=== PATIENT | female | born 1950 | race African-American/Black ===

== ENCOUNTER 2016-09-09 19:59 | Emergency (ER) | payer MEDICARE ==
[2016-09-09 21:28] LABS: Hematocrit 39 % (35-47); Hemoglobin 12.5 g/dl (12.0-16.0); Mean Corpuscular HGB Conc 32 g/dl (31-36); Mean Corpuscular Hemoglobin 30 pg (27-31); Mean Corpuscular Volume 94 fL (80-97); Mean Platelet Volume 9 um3 (7.4-10.4); Red Blood Count 4.12 10^6/ul (4.0-5.4); Red Cell Distribution Width 14 % (10.5-15); White Blood Count 7.4 10^3/ul (3.5-10.8)
[2016-09-09 21:44] LABS: Albumin 3.8 g/dL (3.2-5.2); BUN/Creatinine Ratio 10.1 (8-20); Calcium 9.1 mg/dL (8.6-10.3); EGFR African American 109.5 (>60); EGFR Non-African American 85.1 (>60); Globulin 3.1 g/dL (2-4); Magnesium 1.9 mg/dL (1.9-2.7); Potassium 3.7 mmol/L (3.5-5.0); Total Bilirubin 0.3 mg/dL (0.2-1.0); Total Protein 6.9 g/dL (6.4-8.9)
--- NOTE | 2016-09-09 21:48 | RAD ---
INDICATION: "Defibrillator buzzing" COMPARISON: Chest x-ray February 05, 2015 TECHNIQUE: PA and lateral views of the chest were obtained. FINDINGS: Left upper chest cardiac pacemaker with 2 leads overlying the heart is under change in position from previous chest x-ray. The heart and mediastinum are normal in size and contour. The lungs are grossly clear. There is no evidence of large pleural effusion. Visualized bones are normal for the patient's age. There is no radiographic evidence of free air beneath the diaphragm IMPRESSION: No radiographic evidence of acute cardiopulmonary disease.
--- NOTE | 2016-09-09 22:27 | ED ---
vane Flores Timothy, scribed for Loki Croft MD on 09/09/16 at 2112 . HPI Cardiac - HPI Summary HPI Summary: Selin Sharp is a 65 yo female presenting to [facility] with "buzzing" in her chest at 1800 today for a few seconds, and again a little later which lasted longer. Pt has a defibrillator in her left chest. She states that she did not feel any shock. She denies CP, SOB, nausea. She is not in any current pain. Her MHx includes angina, CAD, cardicac catheterization, meditronic heart monitor x 1 year, HLD, HTN, Afib partial hysterectomy, GERD, tobacco use. - History of Current Complaint Chief Complaint: EDGeneral Stated Complaint: DEFIBRILLATOR BUZZING Time Seen by Provider: 09/09/16 21:08 Hx Obtained From: Patient Onset/Duration: Started Hours Ago, Still Present Time of Onset: 18:00 Timing: Constant Initial Severity: Moderate Current Severity: Moderate Pain Intensity: 0 Pain Scale Used: 0-10 Numeric Character: Other: - buzzing of defibrillator without shock Associated Signs and Symptoms: Positive: Other: - defibrillator buzzing - Allergy/Home Medications Allergies/Adverse Reactions: Allergies Allergy/AdvReac Type Severity Reaction Status Date / Time Penicillins Allergy Intermediate Rash Verified 09/09/16 20:21 Lisinopril AdvReac Intermediate Coughing Verified 09/09/16 20:21 Latex AdvReac Unknown Unknown Verified 09/09/16 20:21 Reaction Details PMH/Surg Hx/FS Hx/Imm Hx Cardiovascular History: Reports: Hx Angina, Hx Coronary Artery Disease, Hx Hypercholesterolemia, Hx Hypertension - W/MEDS, Hx Pacemaker/ICD, Other Cardiovascular Problems/Disorders - HAS A MEDITRONIC HEART MONITOR X 1YR DONE @ [place] Denies: Hx Myocardial Infarction, Hx Valvular Heart Disease Respiratory History: Denies: Hx Asthma Musculoskeletal History: Denies: Hx Osteoporosis Sensory History: Denies: Hx Hearing Aid Psychiatric History: Denies: Hx Panic Disorder - Cancer History Hx Chemotherapy: No Hx Radiation Therapy: No - Surgical History Surgery Procedure, Year, and Place: *ECTOPIC ;partial hysterectomy. * FEEDING TUBE- DIFFICULTY EATING AN INFANT DUE TO DAIRY PRODUCTS- ALONG WITH A DYE THROUGH FEMORAL ARTERY TO SEE BLOOD FLOW AROUND ABD- NEEDLE ; BROKE OFF AND HAD TO HAVE SURGERY TO REMOVED BROKEN;. DEFIBRILATOR. NEED IN FEMERAL ARTERY;. *LOOP RECORDER -CARDIAC MONITORING- [employer]-REVEAL XT 9529-06/11 [facility] ( pt has a card and specifics on monitor in REPORT section in chart ) Infectious Disease History: Denies: Traveled Outside the [place] in Last 30 Days - Family History Known Family History: Positive: Cardiac Disease, Hypertension, Diabetes - Social History Alcohol Use: None Substance Use Type: Reports: None Hx Tobacco Use: Yes Smoking Status (MU): Former Smoker Review of Systems Constitutional: Negative Eyes: Negative ENT: Negative Cardiovascular: Other - defibrillator buzzing Respiratory: Negative Gastrointestinal: Negative Genitourinary: Negative Musculoskeletal: Negative Skin: Negative Neurological: Negative Psychological: Normal All Other Systems Reviewed And Are Negative: Yes Physical Exam Triage Information Reviewed: Yes Vital Signs On Initial Exam: Initial Vitals Temp Pulse Resp BP Pulse Ox 97 F 79 16 159/77 97 09/09/16 20:21 09/09/16 20:21 09/09/16 20:21 09/09/16 20:21 09/09/16 20:21 Vital Signs Reviewed: Yes Appearance: Positive: Well-Appearing, No Pain Distress Skin: Positive: Warm Head/Face: Positive: Normal Head/Face Inspection Eyes: Positive: EOMI, ALPESH ENT: Positive: Hearing grossly normal Neck: Positive: Supple, Nontender Respiratory/Lung Sounds: Positive: Clear to Auscultation, Breath Sounds Present Cardiovascular: Positive: RRR. Negative: Murmur Abdomen Description: Positive: Nontender, No Organomegaly, Soft Bowel Sounds: Positive: Present Musculoskeletal: Positive: Strength/ROM Intact Neurological: Positive: Alert, Oriented to Person Place, Time Diagnostics - Vital Signs Vital Signs Temp Pulse Resp BP Pulse Ox 09/09/16 20:21 97 F 79 16 159/77 97 - Laboratory Lab Results: Lab Results 09/09/16 09/09/16 09/09/16 Range/Units 21:22 21:22 21:22 WBC 7.4 (3.5-10.8) 10^3/ul RBC 4.12 (4.0-5.4) 10^6/ul Hgb 12.5 (12.0-16.0) g/dl Hct 39 (35-47) % MCV 94 (80-97) fL MCH 30 (27-31) pg MCHC 32 (31-36) g/dl RDW 14 (10.5-15) % Plt Count 180 (150-450) 10^3/ul MPV 9 (7.4-10.4) um3 Neut % (Auto) 44.6 (38-83) % Lymph % (Auto) 42.0 (25-47) % Gilmer % (Auto) 8.0 (1-9) % Eos % (Auto) 3.9 (0-6) % Baso % (Auto) 1.5 (0-2) % Absolute Neuts (auto) 3.3 (1.5-7.7) 10^3/ul Absolute Lymphs (auto) 3.1 (1.0-4.8) 10^3/ul Absolute Monos (auto) 0.6 (0-0.8) 10^3/ul Absolute Eos (auto) 0.3 (0-0.6) 10^3/ul Absolute Basos (auto) 0.1 (0-0.2) 10^3/ul Absolute Nucleated RBC 0.01 10^3/ul Nucleated RBC % 0.2 INR (Anticoag Therapy) 1.07 (0.89-1.11) Sodium 141 (133-145) mmol/L Potassium 3.7 (3.5-5.0) mmol/L Chloride 108 (101-111) mmol/L Carbon Dioxide 31 (22-32) mmol/L Anion Gap 2 (2-11) mmol/L BUN 7 (6-24) mg/dL Creatinine 0.69 (0.51-0.95) mg/dL Est GFR ( Amer) 109.5 (>60) Est GFR (Non-Af Amer) 85.1 (>60) BUN/Creatinine Ratio 10.1 (8-20) Glucose 124 H (70-100) mg/dL Lactic Acid (0.5-2.0) mmol/L Calcium 9.1 (8.6-10.3) mg/dL Magnesium 1.9 (1.9-2.7) mg/dL Total Bilirubin 0.30 (0.2-1.0) mg/dL AST 19 (13-39) U/L ALT 14 (7-52) U/L Alkaline Phosphatase 72 (34-104) U/L Troponin I 0.00 (<0.04) ng/mL Total Protein 6.9 (6.4-8.9) g/dL Albumin 3.8 (3.2-5.2) g/dL Globulin 3.1 (2-4) g/dL Albumin/Globulin Ratio 1.2 (1-3) 09/09/16 Range/Units 21:22 WBC (3.5-10.8) 10^3/ul RBC (4.0-5.4) 10^6/ul Hgb (12.0-16.0) g/dl Hct (35-47) % MCV (80-97) fL MCH (27-31) pg MCHC (31-36) g/dl RDW (10.5-15) % Plt Count (150-450) 10^3/ul MPV (7.4-10.4) um3 Neut % (Auto) (38-83) % Lymph % (Auto) (25-47) % Gilmer % (Auto) (1-9) % Eos % (Auto) (0-6) % Baso % (Auto) (0-2) % Absolute Neuts (auto) (1.5-7.7) 10^3/ul Absolute Lymphs (auto) (1.0-4.8) 10^3/ul Absolute Monos (auto) (0-0.8) 10^3/ul Absolute Eos (auto) (0-0.6) 10^3/ul Absolute Basos (auto) (0-0.2) 10^3/ul Absolute Nucleated RBC 10^3/ul Nucleated RBC % INR (Anticoag Therapy) (0.89-1.11) Sodium (133-145) mmol/L Potassium (3.5-5.0) mmol/L Chloride (101-111) mmol/L Carbon Dioxide (22-32) mmol/L Anion Gap (2-11) mmol/L BUN (6-24) mg/dL Creatinine (0.51-0.95) mg/dL Est GFR ( Amer) (>60) Est GFR (Non-Af Amer) (>60) BUN/Creatinine Ratio (8-20) Glucose (70-100) mg/dL Lactic Acid 1.0 (0.5-2.0) mmol/L Calcium (8.6-10.3) mg/dL Magnesium (1.9-2.7) mg/dL Total Bilirubin (0.2-1.0) mg/dL AST (13-39) U/L ALT (7-52) U/L Alkaline Phosphatase (34-104) U/L Troponin I (<0.04) ng/mL Total Protein (6.4-8.9) g/dL Albumin (3.2-5.2) g/dL Globulin (2-4) g/dL Albumin/Globulin Ratio (1-3) Result Diagrams: 09/09/16 21:22 09/09/16 21:22 Lab Statement: Any lab studies that have been ordered have been reviewed, and results considered in the medical decision making process. - Radiology CXR Xray Interpretation: No Acute Changes - IMPRESSION: No radiographic evidence of acute cardiopulmonary disease. Radiology Interpretation Completed By: Radiologist - EKG 2032 Cardiac Rate: NL - 71 BPM EKG Interpretation: NSR @ 71 BPM, occasional APC Re-Evaluation - Re-Evaluation First Eval Re-Evaluation Time: 00:34 Change: Improved Comment: Discussed lab and imaging studies with Pt. Answered questions of Pt and her family to their satisfaction. no furthewr episodes in ed, pt advised to f/u with cardio in am Disposition - Course Assessment/Plan: Selin Sharp is a 65 yo female presenting ot [facility] with buzzing in her defibrillator for 7 seconds at 1800, and again for slightly longer a little later. Pt medication list reviewed this visit. Her EKG suggests NSR with occasional APC. Her CXR suggests no evidence of acute cardiopulmonary disease. After clinical examination and review of her lab and imaging studies, she will be discharged home with palpitations with appropriate instructions. 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 Return to the emergency department with any new or recurring symptoms. The documentation as recorded by the vane montague Timothy accurately reflects the service I personally performed and the decisions made by me, Loki Croft MD.
[2016-09-10 00:57] VITALS: BP 152/84
== END 2016-09-10 00:55 | disposition home or self-care (01) ==
LOC: ED 19:59
DX: R00.2 Palpitations (principal); Z95.810 Presence of automatic (implantable) cardiac defibrillator; I10 Essential (primary) hypertension; I25.119 Atherosclerotic heart disease of native coronary artery with unspecified angina pectoris; E78.00 Pure hypercholesterolemia, unspecified; Z88.0 Allergy status to penicillin; Z88.8 Allergy status to other drugs, medicaments and biological substances; Z91.040 Latex allergy status; Z87.891 Personal history of nicotine dependence
CPT/HCPCS: 36415; 71020; 80053; 83605; 83735; 84484; 85025; 85610; 93005; 99283

== ENCOUNTER 2017-07-14 11:58 | Emergency (ER) | payer MEDICARE ==
[2017-07-14] MEDS ORDERED: predniSONE TAB* 20 MG PO ONE (12:34)
--- NOTE | 2017-07-14 12:45 | UC ---
Skin Complaint HPI - HPI Summary HPI Summary: Complains of progressive pruritic rash starting on bilateral legs moving to bilateral arms and hands 2 weeks. States pain starting yesterday. Denies fever, cough, sore throat, CP, SOB, N/V/D, abdomen pain, change in urinary BM. Denies new soaps, detergents, lotions, shampoos. Admits to change in prescription meds starting 2 weeks ago. Patient states pharmacy changed drug companies who supply her omeprazole, carvedilol, amlodipine. Has not taken any antihistamines. Medical conditions as HTN, GERD, defibrillator implant for A. fib. History of recent cold symptoms - History of Current Complaint Hx Obtained From: Patient Onset/Duration: Gradual Onset Skin Exposure Onset/Duration: Weeks Ago Onset Severity: Mild Current Severity: Moderate Location: Diffuse Character: Pruritus, Painful Associated Signs & Symptoms: Positive: Rash <Loki Valiente - Last Filed: 07/14/17 22:26> <Toma Winston - Last Filed: 07/15/17 10:14> - History of Current Complaint Time Seen by Provider: 07/14/17 12:16 Stated Complaint: RASH - Allergy/Home Medications Allergies/Adverse Reactions: Allergies Allergy/AdvReac Type Severity Reaction Status Date / Time latex Allergy Rash Verified 07/14/17 13:57 lisinopril Allergy Rash Verified 07/14/17 13:57 Penicillins Allergy Rash Verified 07/14/17 13:57 Review of Systems Constitutional: Negative Skin: Rash Eyes: Negative ENT: Negative Respiratory: Negative Cardiovascular: Negative Gastrointestinal: Negative Genitourinary: Negative Motor: Negative Neurovascular: Negative Musculoskeletal: Negative Neurological: Negative Psychological: Negative All Other Systems Reviewed And Are Negative: Yes <Loki Valiente - Last Filed: 07/14/17 22:26> PMH/Surg Hx/FS Hx/Imm Hx - Surgical History Surgical History: Yes Surgery Procedure, Year, and Place: *ECTOPIC ;partial hysterectomy. * FEEDING TUBE- DIFFICULTY EATING AN INFANT DUE TO DAIRY PRODUCTS- ALONG WITH A DYE THROUGH FEMORAL ARTERY TO SEE BLOOD FLOW AROUND ABD- NEEDLE ; BROKE OFF AND HAD TO HAVE SURGERY TO REMOVED BROKEN;. DEFIBRILATOR. NEED IN FEMERAL ARTERY;. *LOOP RECORDER -CARDIAC MONITORING- [employer]-REVEAL XT 9529-06/11 [facility] ( pt has a card and specifics on monitor in REPORT section in chart ) - Family History Known Family History: Positive: Cardiac Disease, Hypertension, Diabetes - Social History Alcohol Use: None Substance Use Type: None Smoking Status (MU): Former Smoker Household Exposure Type: Cigarettes <RoccoLoki - Last Filed: 07/14/17 22:26> Physical Exam Triage Information Reviewed: Yes Appearance: Well-Appearing Vital Signs Reviewed: Yes Eyes: Positive: Conjunctiva Clear ENT Exam: Normal Neck exam: Normal Respiratory Exam: Normal Cardiovascular Exam: Normal Abdominal Exam: Normal Musculoskeletal Exam: Normal Neurological Exam: Normal Psychological Exam: Normal <RoccoLoki - Last Filed: 07/14/17 22:26> Vital Signs: Initial Vital Signs Temp 97.4 F 07/14/17 13:53 Pulse 78 07/14/17 13:53 Resp 18 07/14/17 13:53 BP 170/78 07/14/17 13:53 Pulse Ox 99 07/14/17 13:53 <Toma Winston - Last Filed: 07/15/17 10:14> Course/Dx - Course Course Of Treatment: pruritic macular papular rash. Trial of prednisone po. f/ up with pcp for possible reaction to usual meds thru new drug supplier at pharmacy - Diagnoses Provider Diagnoses: Rash <Loki Valiente - Last Filed: 07/14/17 22:26> Discharge - Sign-Out/Discharge Documenting (check all that apply): Discharge/Admit/Transfer - Billing Disposition and Condition Condition: STABLE Disposition: HOME <Loki Valiente - Last Filed: 07/14/17 22:26> - Billing Disposition and Condition Condition: STABLE Disposition: HOME <Toma Winston - Last Filed: 07/15/17 10:14> - Discharge Plan Condition: Stable Disposition: HOME Patient Education Materials: Urticaria (ED), Acute Rash (ED) Referrals: Yelitza Mane MD [Primary Care Provider] - Additional Instructions: Follow-up with primary care regarding change in prescription meds. Return for any new or worsening symptoms Attestation Statement User Type: Provider - I was available for consult. This patient was seen by the KRYSTINA. The patient was not presented to, seen by, or examined by me. -Aracely <Toma Winston - Last Filed: 07/15/17 10:14>
[2017-07-14 13:55] VITALS: BP 170/78
== END 2017-07-14 14:01 | disposition home or self-care (01) ==
LOC: UCEAST 11:58
DX: R21 Rash and other nonspecific skin eruption (principal); Z88.0 Allergy status to penicillin; Z88.8 Allergy status to other drugs, medicaments and biological substances; Z91.040 Latex allergy status; Z87.891 Personal history of nicotine dependence
CPT/HCPCS: 99212; G0463; J7512

== ENCOUNTER 2018-04-07 14:32 | Emergency (ER) | payer MEDICARE ==
--- OUTSIDE RECORDS SUMMARY | 2018-04-07 15:13 | XMS REPORT | Continuity of Care Document ---
:1950 External Reference #:[id number] Author Name Kristin Castañeda Care Team Providers Name Role Phone Yelitza Mane MD Primary Care Physician Unavailable Payers Type Date Identification Numbers Payment Provider Subscriber Policy Number: [id number] [employer] Medicare Selin D Sharp PayID: [id number] [address] [place] [address] Effective: 2010 Policy Number: [id number] Medicare Selin D Sharp Expires: 2018 PayID: [id number] [address] [place] [address] Expires: 2014 Policy Number: [id number] Medicaid Selin D Sharp Group Name: 1 1 [address] PayID: [id number] [place] [address] Expires: 2014 Policy Number: [id number] Medicaid Selin D Sharp Group Name: 1 1 [address] PayID: [id number] [place] [address] Expires: 2012 Policy Number: [id number] Medicaid Selin D Sharp PayID: [id number] [address] [place] [address] Expires: 2012 Policy Number: [place] Medicaid Selin D Sharp [id number] PayID: [id number] [address] [address] [place] [address] Expires: 2014 Policy Number: [id number] Medicaid Selin D Sharp Group Name: 1 1 [address] PayID: [id number] [place] [address] Expires: 2016 Policy Number: [id number] Medicaid Selin D Sharp Group Name: 1 1 [address] PayID: [id number] [place] [address] Expires: 2000 Policy Number: [id number] Medicaid Selin D Sharp Group Name: 1 1 [address] PayID: [id number] [place] [address] Expires: 2016 Policy Number: [id number] Medicaid Selin D Sharp Group Name: 1 1 [address] PayID: [id number] [place] [address] Advance Directives Description No Information Available Problems Date Description Provider Status Onset: 04/09/2011 Coronary atherosclerosis Junior Hernandez Active [place] Onset: 04/09/2011 Restrictive cardiomyopathy Junior Hernandez, Active secondary to granulomas M.D. Onset: 04/09/2011 Essential hypertension Junior Hernandez Active [place] Onset: 04/09/2011 Electrocardiogram abnormal Jesus Nolan M.D. Onset: 06/27/2011 Conduction disorder of the heart Junior Hernandez Active [place] Onset: 06/27/2011 Syncope and collapse Jesus Nolan M.D. Onset: 06/27/2011 Coronary arteriosclerosis Junior Hernandez Active [place] Onset: 07/14/2012 Mixed hyperlipidemia Junior Hernandez Active [place] Onset: 03/14/2013 Primary cardiomyopathy Junior Hernandez Active [place] Onset: 03/14/2013 Automatic implantable cardiac Junior Hernandez Active defibrillator in situ M.D. Onset: 03/14/2013 Benign essential hypertension Junior Hernandez Active [place] Onset: 01/08/2015 Cardiomyopathy, unspecified Junior Hernandez Active [place] Onset: Internal hemorrhoids Active Family History Date Family Member(s) Problem(s) Comments : (age 62 Father due to Cancer, Lung smoker Years) : (age 62 Mother due to [place] smoker, HTN Years) Paternal Grandfather due to Unknown () Causes Paternal Grandmother due to poisoning () : (age 72 Maternal Grandfather due to Unknown Years) Causes : (age 74 Maternal Grandmother due to Diabetes Years) Maternal Grandmother due to Hypertension () Social History Type Date Description Comments Sex Unknown Marital Status Lives With Children 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 Tobacco Use Start: Unknown End: Former Cigarette Smoker started at age 22 , Unknown quit 2014 41 pk yr Smoking Status Reviewed: 03/25/18 Former Cigarette Smoker started at age 22 , quit 2014 41 pk yr ETOH Use Drinks Alcoholic Beverages Rarely Recreational Drug Use Denies Drug Use Tobacco Use Start: Unknown End: Patient is a former Unknown smoker Exercise Type/Frequency Exercises regularly 3-4 times a week Allergies, Adverse Reactions, Alerts Date Description Reaction Status Severity Comments 11/06/2009 Penicillins Active unknown/unsure if real reaction 06/27/2011 Latex Active 07/26/2013 Lisinopril Active dry cough Medications Medication Date Status Form Strength Qnty SIG Indications Ordering Provider Losartan 09/25/ Active Tablets 100mg 30tabs 1 by I10 Marcelletadong Potassium 2018 mouth S. every day lBanca Hernandez Simvastatin 12/02/ Active Tablets 5mg 30tabs 1 by Junior 2017 mouth S. every day Mary in the , M.DAaliyah evening. Amlodipine 04/03/ Active Tablets 5mg 60tabs 1 by Yelitza Besylate 2016 mouth Mane, every day M.D. Aspirin / Active Tablets 81mg 1 po qd Unknown 0000 Carvedilol / Active Tablets 3.125mg 60tabs 1 by Junior 0000 mouth [facility]. [facility] M.Da[facility]yah Clindamycin HCL 10/14/ Hx Capsules 150mg 9caps one Danny 2017 - capsule D. Brand, 10/19/ by mouth M.DAaliyah 2017 three times a day for 3 days Diovan 01/18/ Hx Tablets 160mg 180tab 1 tab I10 Qutaybeh 2015 - s twice a S. day Mary Granger M.D. Losartan 01/08/ Hx Tablets 100mg 30tabs one po qd Qutaybeh Potassium 2014 - S. 01/18/ Mary 2014 [place] Losartan 12/21/ Hx Tablets 50mg 90tabs 1 by Yelitza Potassium 2014 - mouth Mane, 01/08/ every day M.DAaliyah 2014 Losartan 10/30/ Hx Tablets 25mg 90tabs 2 by 401.9 Yelitza Potassium 2014 - mouth Mane, 12/21/ every day M.DAaliyah 2014 Bupropion HCL ER 07/26/ Hx Tablets ER 150mg 60tabs 1 tablet 311 Yelitza (XL) 2013 - 24HR once a Mane, M.DAaliyah 2014 Losartan 07/06/ Hx Tablets 25mg 90tabs 1 by 401.1 Marcelletaybeh Potassium 2013 - mouth S. 10/30/ every day Mary 2014 [place] Omeprazole 04/07/ Hx Capsules 20mg 30caps take 1 K21.9 Yelitza 2013 - DR capsule Alhaji, 03/24/ by mouth M.DAaliyah 2018 once daily Gabapentin 12/06/ Hx Capsules 100mg 90caps take 1 Yelitza 2012 - capsule Alhaji, 10/30/ by mouth M.DAaliyah 2014 three times a day Neurontin 08/12/ Hx Capsules 100mg 90caps po tid 722.91 Yelitza 2012 - Alhaji, 09/28/ [place] 2012 Lisinopril 07/28/ Hx Tablets 10mg 90tabs 1 po qd Qutaybeh 2012 - S. 07/06/ Mary 2013 [place] Bupropion HCL XL 07/22/ Hx Tablets ER 150mg 60tabs 1 tablet 311 Yelitza 2012 - 24HR twice a Mane, day M.Carly 2013 Lorazepam 07/14/ Hx Tablets 1mg 120tab 1 q 6 Other 2013 - s hours prn Ordering 07/22/ Provider 2013 Lisinopril 09/09/ Hx Tablets 5mg 90tabs 1 po qd Qutaybeh 2010 - S. 04/09/ Mary Jefferson M.D. [place] 08/14/ Hx Tablets 5-325mg 30tabs 1 po q6h Dirk 2010 - prn pain Sayra, 04/09/ [place] 2012 Metoprolol 11/14/ Hx Tablets 25mg 30tabs 1 tablet Qutayb Tartrate 2009 - po qd S. [facility] 2010 [place] Lisinopril 11/06/ Hx Tablets 2.5mg 30tabs 1 po qd Qutaybeh 2009 - S. [facility] 2010 [place] Toprol XL 11/06/ Hx Tablets ER 25mg 30tabs 1 po qd Qutaybeh 2009 - 24HR S. [facility] 2009 [place] Lasix 11/06/ Hx Tablets 20mg 30tabs 1 po qd Qutaybeh 2009 - S. [facility] [place] Jefferson Cyclobenzaprine / Hx Tablets 5mg 30tabs 1 po tid Unknown HCL 0000 - prn 2010 Ibuprofen / Hx Tablets 600mg 90tabs 1 po tid Unknown 0000 - prn 2011 Centrum Silver / Hx Tablets 50tabs 1 po qd Unknown 0000 - 2011 Potassium /00/ Hx Capsules 10Meq 100cap 1 po qod Unknown Chloride ER 0000 - ER s 2010 Omeprazole / Hx Tablets DR 20mg 90tabs 1 po qd Unknown 0000 - 2011 Klor-Con 10 / Hx Tablets ER 10Meq 30tabs 1 po qod Unknown 0000 - 2011 Bupropion HCL / Hx Tablets 75mg 1 po qd Unknown 0000 - 2012 Lisinopril / Hx Tablets 5mg 90tabs 1 po qd Qutaybeh 0000 - S. [facility] [place] Reese Omeprazole 0000/ Hx Capsules 20mg 30caps 1 po qd Unknown 0000 - DR 2012 Zocor 00/ Hx Tablets 20mg 90tabs 1 by Qutaybeh 0000 - mouth S. 08/26/ [facility] 2017 night at [facility] bedtime Immunizations CPT Code Status Date Vaccine Lot # [id number] Given 03/26/2015 Pneumococcal Conjugate Vaccine 13 Valent For [id number] Intramuscular Use [id number] Given 08/12/2012 Tdap - Tetanus/Diptheria/Acellular Pertussis [id number] Refused 12/15/2016 Influenza Virus Vaccine, Quadrivalent, Split, Preservative Free [id number] Refused 03/26/2015 Influenza Virus Vaccine, Quadrivalent, Split, Preservative Free Vital Signs Date Vital Result Comment 03/25/2018 11:24am Height 61.3 inches 5'1.30" Weight 175.00 lb w/o shoes Heart Rate 81 /min BP Systolic Sitting 180 mmHg Lue reg cuff BP Diastolic Sitting 90 mmHg Lue reg cuff BP Systolic Standing 150 mmHg lue Reg cuff BP Diastolic Standing 85 mmHg lue Reg cuff Respiratory Rate 17 /min BMI (Body Mass Index) 32.7 kg/m2 Ejection Fraction 40-45% 12/02/17 echo 08/27/2017 3:07pm Height 61.3 inches 5'1.30" Weight 184.00 lb Heart Rate 64 /min BP Systolic Sitting 152 mmHg BP Diastolic Sitting 78 mmHg Respiratory Rate 16 /min BMI (Body Mass Index) 34.4 kg/m2 Ejection Fraction 40-45% 05/16/2016 echo 12/23/2016 12:57pm Height 61.3 inches 5'1.30" Weight 180.75 lb with shoes Heart Rate 92 /min BP Systolic Sitting 142 mmHg LA reg cuff BP Diastolic Sitting 80 mmHg LA reg cuff BMI (Body Mass Index) 33.8 kg/m2 Ejection Fraction 40%-45% echo 05/16/16 12/15/2016 10:29am Height 61.3 inches 5'1.30" Weight 178.00 lb Heart Rate 77 /min BP Systolic Sitting 138 mmHg BP Diastolic Sitting 82 mmHg Body Temperature 96.7 F O2 % BldC Oximetry 97 % BMI (Body Mass Index) 33.3 kg/m2 10/21/2016 1:35pm Height 62 inches 5'2" Weight 181.00 lb w/ shoes Heart Rate 80 /min irreg BP Systolic Sitting 150 mmHg Lue, reg BP Diastolic Sitting 90 mmHg Lue, reg BP Systolic Standing 140 mmHg Lue BP Diastolic Standing 86 mmHg Lue Respiratory Rate 16 /min BMI (Body Mass Index) 33.1 kg/m2 Ejection Fraction 40-45% as of 04/2016 echo 09/19/2016 10:36am Height 62 inches 5'2" Weight 182.00 lb with shoes Heart Rate 64 /min BP Systolic Sitting 140 mmHg Rue reg cuff BP Diastolic Sitting 88 mmHg Rue reg cuff BP Systolic Standing 136 mmHg Rue reg cuff BP Diastolic Standing 86 mmHg Rue reg cuff Respiratory Rate 14 /min BMI (Body Mass Index) 33.3 kg/m2 Ejection Fraction 40-45% 05/16/2016-echo 08/14/2016 12:51pm Weight 181.25 lb Heart Rate 86 /min BP Systolic 138 mmHg BP Diastolic 80 mmHg Body Temperature 96.9 F O2 % BldC Oximetry 98 % 04/29/2016 12:51pm Height 62 inches 5'2" Weight 179.00 lb with shoes Heart Rate 88 /min BP Systolic Sitting 166 mmHg LA lrg cuff BP Diastolic Sitting 98 mmHg LA lrg cuff BMI (Body Mass Index) 32.7 kg/m2 Ejection Fraction 40% - 45% echo 01/31/15 05/07/2015 9:30am Height 62 inches 5'2" Weight 160.00 lb Heart Rate 64 /min BP Systolic Sitting 132 mmHg LA, regular cuff BP Diastolic Sitting 76 mmHg LA, regular cuff BMI (Body Mass Index) 29.3 kg/m2 Ejection Fraction 40-45% echo 01/31/15 04/03/2015 11:41am Heart Rate 60 /min BP Systolic 150 mmHg BP Diastolic 80 mmHg 03/26/2015 1:15pm Height 61 inches 5'1" Weight 160.00 lb Heart Rate 56 /min BP Systolic Sitting 164 mmHg BP Diastolic Sitting 77 mmHg Body Temperature 96.3 F BMI (Body Mass Index) 30.2 kg/m2 02/13/2015 10:49am Height 62 inches 5'2" Weight 163.00 lb with shoes Heart Rate 70 /min BP Systolic 166 mmHg LA reg cuff BP Diastolic 98 mmHg LA reg cuff Respiratory Rate 17 /min BMI (Body Mass Index) 29.8 kg/m2 Ejection Fraction 40-45% date 01/31/15 ECHO 01/18/2015 1:39pm Height 62 inches 5'2" Weight 166.00 lb with shoes Heart Rate 66 /min BP Systolic Sitting 168 mmHg LA reg cuff BP Diastolic Sitting 100 mmHg LA reg cuff Respiratory Rate 16 /min BMI (Body Mass Index) 30.4 kg/m2 Ejection Fraction 45-50% date 05/19/14 ECHO 01/08/2015 3:30pm Height 62 inches 5'2" Weight 164.00 lb with shoes Heart Rate 62 /min BP Systolic 184 mmHg LA reg cuff BP Diastolic 98 mmHg LA reg cuff BP Systolic Sitting 198 mmHg LA reg cuff BP Diastolic Sitting 102 mmHg LA reg cuff BMI (Body Mass Index) 30.0 kg/m2 Ejection Fraction 50-55% date 05/19/14 ECHO 10/30/2014 12:07pm Height 62 inches 5'2" Weight 161.00 lb Heart Rate 76 /min BP Systolic Sitting 180 mmHg BP Diastolic Sitting 94 mmHg Body Temperature 98.0 F O2 % BldC Oximetry 98 % BMI (Body Mass Index) 29.4 kg/m2 05/23/2014 3:02pm Height 62 inches 5'2" Weight 172.00 lb Heart Rate 66 /min BP Systolic Sitting 118 mmHg LA, reg BP Diastolic Sitting 82 mmHg LA, reg BMI (Body Mass Index) 31.5 kg/m2 04/25/2014 2:19pm Height 62 inches 5'2" Weight 174.00 lb Heart Rate 72 /min BP Systolic 160 mmHg LA reg BP Diastolic 90 mmHg LA reg BMI (Body Mass Index) 31.8 kg/m2 07/26/2013 3:06pm Weight 179.00 lb Heart Rate 70 /min BP Systolic Sitting 122 mmHg BP Diastolic Sitting 72 mmHg 07/06/2013 2:03pm Weight 179.00 lb Heart Rate 70 /min BP Systolic Sitting 140 mmHg BP Diastolic Sitting 82 mmHg 04/07/2013 2:44pm Height 62.5 inches 5'2.50" Weight 173.25 lb Heart Rate 79 /min BP Systolic Sitting 138 mmHg BP Diastolic Sitting 84 mmHg BMI (Body Mass Index) 31.2 kg/m2 03/14/2013 1:19pm Height 62.5 inches 5'2.50" Weight 173.00 lb Heart Rate 68 /min BP Systolic 162 mmHg BP Diastolic 94 mmHg BMI (Body Mass Index) 31.1 kg/m2 10/27/2012 2:20pm Height 62 inches 5'2" Weight 165.00 lb BP Systolic 134 mmHg BP Diastolic 76 mmHg Pain Level 6 low back pain BMI (Body Mass Index) 30.2 kg/m2 09/28/2012 10:01am Weight 163.00 lb Heart Rate 74 /min BP Systolic Sitting 131 mmHg BP Diastolic Sitting 75 mmHg O2 % BldC Oximetry 96 % 09/14/2012 10:45am Height 61.5 inches 5'1.50" Heart Rate 62 /min BP Systolic 132 mmHg BP Diastolic 80 mmHg 08/12/2012 11:35am Height 61.5 inches 5'1.50" Weight 160.00 lb Heart Rate 80 /min BP Systolic Sitting 156 mmHg BP Diastolic Sitting 86 mmHg BMI (Body Mass Index) 29.7 kg/m2 07/28/2012 4:13pm Height 61.5 inches 5'1.50" Weight 163.00 lb Heart Rate 68 /min BP Systolic Sitting 180 mmHg BP Diastolic Sitting 80 mmHg Respiratory Rate 20 /min BMI (Body Mass Index) 30.3 kg/m2 07/22/2012 9:50am Height 61.5 inches 5'1.50" Weight 159.25 lb Heart Rate 66 /min BP Systolic Sitting 104 mmHg BP Diastolic Sitting 72 mmHg O2 % BldC Oximetry 97 % BMI (Body Mass Index) 29.6 kg/m2 07/16/2012 2:49pm Height 63 inches 5'3" Weight 161.00 lb Heart Rate 84 /min BP Systolic Sitting 108 mmHg BP Diastolic Sitting 76 mmHg Respiratory Rate 16 /min BMI (Body Mass Index) 28.5 kg/m2 07/14/2012 2:49pm Height 63 inches 5'3" Weight 161.00 lb Heart Rate 120 /min BP Systolic 138 mmHg BP Diastolic 90 mmHg BMI (Body Mass Index) 28.5 kg/m2 03/04/2012 3:14pm Height 63 inches 5'3" Heart Rate 96 /min BP Systolic 138 mmHg BP Diastolic 78 mmHg 06/27/2011 9:27am Height 63 inches 5'3" Weight 147.00 lb Heart Rate 50 /min BP Systolic 122 mmHg BP Diastolic 66 mmHg BMI (Body Mass Index) 26.0 kg/m2 04/09/2011 9:16am Height 63 inches 5'3" Weight 148.00 lb Heart Rate 78 /min BP Systolic 130 mmHg BP Diastolic 72 mmHg BMI (Body Mass Index) 26.2 kg/m2 09/09/2010 9:45am Height 63 inches 5'3" Weight 159.00 lb Heart Rate 62 /min BP Systolic Sitting 132 mmHg L BP Diastolic Sitting 70 mmHg L BMI (Body Mass Index) 28.2 kg/m2 06/12/2010 1:55pm Height 63 inches 5'3" Weight 162.00 lb Heart Rate 60 /min BP Systolic 131 mmHg BP Diastolic 74 mmHg BMI (Body Mass Index) 28.7 kg/m2 04/12/2010 9:44am Height 63 inches 5'3" Weight 157.00 lb Heart Rate 56 /min BP Systolic Sitting 112 mmHg BP Diastolic Sitting 60 mmHg BMI (Body Mass Index) 27.8 kg/m2 12/10/2009 2:17pm Height 63 inches 5'3" Weight 159.00 lb Heart Rate 68 /min BP Systolic 160 mmHg BP Diastolic 90 mmHg Respiratory Rate 16 /min BMI (Body Mass Index) 28.2 kg/m2 11/06/2009 2:07pm Height 63 inches 5'3" Weight 158.00 lb Heart Rate 53 /min BP Systolic Sitting 126 mmHg left arm, right arm 124/84 BP Diastolic Sitting 82 mmHg left arm, right arm 124/84 BP Systolic Standing 144 mmHg right arm BP Diastolic Standing 70 mmHg right arm BMI (Body Mass Index) 28.0 kg/m2 Results Test Date Facility Test Result H/L Range Note Laboratory test 02/17/2017 [facility] Surgical SEE RESULT 1 , [address] [place] [address] [phone] Comp Metabolic 01/12/2017 [facility] Sodium 141 mmol/L N 133- [address] [place] [address] [phone] Potassium 3.9 mmol/L N 3.5-5.0 Chloride 108 mmol/L N 101-111 Co2 Carbon Dioxide 30 mmol/L N 22-32 Anion Gap 3 mmol/L N 2-11 Glucose 84 mg/dL N 70-100 Blood Urea Nitrogen 10 mg/dL N 6-24 Creatinine 0.74 mg/dL N 0.51-0.95 BUN/Creatinine Ratio 13.5 N 8-20 Calcium 9.1 mg/dL N 8.6-10.3 Total Protein 6.9 g/dL N 6.4-8.9 Albumin 3.8 g/dL N 3.2-5.2 Globulin 3.1 g/dL N 2-4 Albumin/Globulin Ratio 1.2 N 1-3 Total Bilirubin 0.50 mg/dL N 0.2-1.0 Alkaline Phosphatase 86 U/L N 34-104 Alt 16 U/L N 7-52 Ast 19 U/L N 13-39 Egfr Non- 78.3 >60 Egfr 100.7 >60 3 CBC Auto Diff 01/12/2017 [facility] White Blood 6.7 10^3/uL N 3.5-10.[address] Count [place], [place] [id number] [phone] Red Blood Count 4.31 10^6/uL N 4.0-5.4 Hemoglobin 12.8 g/dL N 12.0-16.0 Hematocrit 39 % N 35-47 Mean Corpuscular Volume 90 fL N 80-97 Mean Corpuscular Hemoglobin 30 pg N 27-31 Mean Corpuscular HGB Conc 33 g/dL N 31-36 Red Cell Distribution Width 14 % N 10.5-15 Platelet Count 204 10^3/uL N 150-450 Mean Platelet Volume 9 um3 N 7.4-10.4 Abs Neutrophils 2.7 10^3/uL N 1.5-7.7 Abs Lymphocytes 3.1 10^3/uL N 1.0-4.8 Abs Monocytes 0.6 10^3/uL N 0-0.8 Abs Eosinophils 0.2 10^3/uL N 0-0.6 Abs Basophils 0.1 10^3/uL N 0-0.2 Abs Nucleated RBC 0 10^3/uL Granulocyte % 40.9 % N 38-83 Lymphocyte % 46.2 % N 25-47 Monocyte % 8.7 % N 1-9 Eosinophil % 3.4 % N 0-6 Basophil % 0.8 % N 0-2 Nucleated Red Blood Cells % 0 Laboratory test 01/12/2017 [facility] TSH (Thyroid 0.93 mcIU/mL N 0.34-5.[address] Stim Horm) [place] [address] [phone] Hepatitis C Antibody Nonreactive Nonreactive Laboratory test 10/14/2016 [facility] Surgical SEE RESULT [address] [place] [address] [phone] Pre Cath Panel 10/09/2016 [facility] Partial 30.0 seconds N 26.0- 5, [address] Thrombo Time 36.3 [place] [address] PTT [phone] CBC Auto Diff 10/09/2016 [facility] White Blood 6.0 10^3/uL N 3.5-[address] Count 0.8 [place] [address] [phone] Red Blood Count 4.14 10^6/uL N 4.0-5.4 Hemoglobin 12.6 g/dL N 12.0-16.0 Hematocrit 38 % N 35-47 Mean Corpuscular Volume 92 fL N 80-97 Mean Corpuscular Hemoglobin 30 pg N 27-31 Mean Corpuscular HGB Conc 33 g/dL N 31-36 Red Cell Distribution Width 14 % N 10.5-15 Platelet Count 188 10^3/uL N 150-450 Mean Platelet Volume 9 um3 N 7.4-10.4 Abs Neutrophils 2.5 10^3/uL N 1.5-7.7 Abs Lymphocytes 2.7 10^3/uL N 1.0-4.8 Abs Monocytes 0.4 10^3/uL N 0-0.8 Abs Eosinophils 0.3 10^3/uL N 0-0.6 Abs Basophils 0.1 10^3/uL N 0-0.2 Abs Nucleated RBC 0 10^3/uL N Granulocyte % 42.1 % N 38-83 Lymphocyte % 45.1 % N 25-47 Monocyte % 7.3 % N 1-9 Eosinophil % 4.4 % N 0-6 Basophil % 1.1 % N 0-2 Nucleated Red Blood Cells % 0 N Inr/Protime 10/09/2016 [facility] Inr 0.94 N 0.89-1.[address] [place] [address] [phone] Basic Metabolic 10/09/2016 [facility] Sodium 143 mmol/L N 133- [address] [place] [address] [phone] Potassium 4.0 mmol/L N 3.5-5.0 Chloride 109 mmol/L N 101-111 Co2 Carbon Dioxide 29 mmol/L N 22-32 Anion Gap 5 mmol/L N 2-11 Glucose 94 mg/dL N 70-100 Blood Urea Nitrogen 8 mg/dL N 6-24 Creatinine 0.66 mg/dL N 0.51-0.95 BUN/Creatinine Ratio 12.1 N 8-20 Calcium 9.0 mg/dL N 8.6-10.3 Egfr Non- 89.3 N >60 Egfr 114.9 N >60 7 Laboratory test 09/10/2016 [facility] Troponin-I 0.01 ng/mL N <0.[address] (TnI) [place] [address] [phone] Inr/Protime 09/09/2016 [facility] Inr 1.07 N 0.89-1.[address] [place] [address] [phone] Comp Metabolic 09/09/2016 [facility] Sodium 141 mmol/L N 133- [address] [place] [address] [phone] Potassium 3.7 mmol/L N 3.5-5.0 Chloride 108 mmol/L N 101-111 Co2 Carbon Dioxide 31 mmol/L N 22-32 Anion Gap 2 mmol/L N 2-11 Glucose 124 mg/dL High 70-100 Blood Urea Nitrogen 7 mg/dL N 6-24 Creatinine 0.69 mg/dL N 0.51-0.95 BUN/Creatinine Ratio 10.1 N 8-20 Calcium 9.1 mg/dL N 8.6-10.3 Total Protein 6.9 g/dL N 6.4-8.9 Albumin 3.8 g/dL N 3.2-5.2 Globulin 3.1 g/dL N 2-4 Albumin/Globulin Ratio 1.2 N 1-3 Total Bilirubin 0.30 mg/dL N 0.2-1.0 Alkaline Phosphatase 72 U/L N 34-104 Alt 14 U/L N 7-52 Ast 19 U/L N 13-39 Egfr Non- 85.1 N >60 Egfr 109.5 N >60 8 Laboratory test 09/09/2016 [facility] Magnesium 1.9 mg/dL N 1.9-2.[address] [place] [address] [phone] Troponin-I (TnI) 0.00 ng/mL N <0.04 CBC Auto Diff 09/09/2016 [facility] White Blood 7.4 10^3/uL N 3.5-10.[address] [place] [address] [phone] Red Blood Count 4.12 10^6/uL N 4.0-5.4 Hemoglobin 12.5 g/dL N 12.0-16.0 Hematocrit 39 % N 35-47 Mean Corpuscular Volume 94 fL N 80-97 Mean Corpuscular Hemoglobin 30 pg N 27-31 Mean Corpuscular HGB Conc 32 g/dL N 31-36 Red Cell Distribution Width 14 % N 10.5-15 Platelet Count 180 10^3/uL N 150-450 Mean Platelet Volume 9 um3 N 7.4-10.4 Abs Neutrophils 3.3 10^3/uL N 1.5-7.7 Abs Lymphocytes 3.1 10^3/uL N 1.0-4.8 Abs Monocytes 0.6 10^3/uL N 0-0.8 Abs Eosinophils 0.3 10^3/uL N 0-0.6 Abs Basophils 0.1 10^3/uL N 0-0.2 Abs Nucleated RBC 0.01 10^3/uL N Granulocyte % 44.6 % N 38-83 Lymphocyte % 42.0 % N 25-47 Monocyte % 8.0 % N 1-9 Eosinophil % 3.9 % N 0-6 Basophil % 1.5 % N 0-2 Nucleated Red Blood Cells % 0.2 N Laboratory test 09/09/2016 [facility] Lactic Acid 1.0 mmol/L N 0.5-2.0 9 finding [address] [place] [address] [phone] Lipid Profile 08/18/2016 [facility] Triglycerides 80 mg/dL N 10 (Trig/Chol/HDL) [address] [place] [address] [phone] Cholesterol 125 mg/dL N 11 HDL Cholesterol 44.4 mg/dL N 12 LDL Cholesterol 65 mg/dL N 13 Comp Metabolic Panel 08/18/2016 [facility] Sodium 139 mmol/L N 133-145 [address] [place] [address] [phone] Potassium 3.9 mmol/L N 3.5-5.0 Chloride 110 mmol/L N 101-111 Co2 Carbon Dioxide 27 mmol/L N 22-32 Anion Gap 2 mmol/L N 2-11 Glucose 96 mg/dL N 70-100 Blood Urea Nitrogen 13 mg/dL N 6-24 Creatinine 0.74 mg/dL N 0.51-0.95 BUN/Creatinine Ratio 17.6 N 8-20 Calcium 9.3 mg/dL N 8.6-10.3 Total Protein 7.2 g/dL N 6.4-8.9 Albumin 4.2 g/dL N 3.2-5.2 Globulin 3.0 g/dL N 2-4 Albumin/Globulin Ratio 1.4 N 1-3 Total Bilirubin 0.40 mg/dL N 0.2-1.0 Alkaline Phosphatase 85 U/L N 34-104 Alt 20 U/L N 7-52 Ast 22 U/L N 13-39 Egfr Non- 78.5 N >60 Egfr 101.0 N >60 14 Basic Metabolic Panel 01/29/2015 [facility] Sodium 142 mmol/L N 133-[address] [place] [address] [phone] Potassium 3.6 mmol/L N 3.5-5.0 Chloride 108 mmol/L N 101-111 Co2 Carbon Dioxide 28 mmol/L N 22-32 Anion Gap 6 mmol/L N 2-11 Glucose 90 mg/dL N 70-100 Blood Urea Nitrogen 9 mg/dL N 6-24 Creatinine 0.64 mg/dL N 0.51-0.95 BUN/Creatinine Ratio 14.1 N 8-20 Calcium 9.1 mg/dL N 8.6-10.3 Egfr Non- 93.1 N >60 Egfr 119.8 N >60 15 CBC Auto Diff 11/28/2014 [facility] White Blood 5.6 10^3/uL N 4.8-10.[address] [place] [address] [phone] Red Blood Count 4.24 10^6/uL N 4.0-5.4 Hemoglobin 13.3 g/dL N 12.0-16.0 Hematocrit 40 % N 35-47 Mean Corpuscular Volume 95 fL N 80-97 Mean Corpuscular Hemoglobin 31 pg N 27-31 Mean Corpuscular HGB Conc 33 g/dL N 31-36 Red Cell Distribution Width 13 % N 10.5-15 Platelet Count 199 10^3/uL N 150-450 Mean Platelet Volume 8 um3 N 7.4-10.4 Abs Neutrophils 2.2 10^3/uL N 1.5-7.7 Abs Lymphocytes 2.7 10^3/uL N 1.0-4.8 Abs Monocytes 0.5 10^3/uL N 0-0.8 Abs Eosinophils 0.2 10^3/uL N 0-0.6 Abs Basophils 0 10^3/uL N 0-0.2 Abs Nucleated RBC 0.01 10^3/uL N Granulocyte % 39.2 % N 38-83 Lymphocyte % 48.0 % High 25-47 Monocyte % 9.0 % N 1-9 Eosinophil % 3.2 % N 0-6 Basophil % 0.6 % N 0-2 Nucleated Red Blood Cells % 0.1 N Comp Metabolic Panel 11/28/2014 [facility] Sodium 143 mmol/L N 133-[address] [place] [address] [phone] Potassium 4.0 mmol/L N 3.5-5.0 Chloride 110 mmol/L N 101-111 Co2 Carbon Dioxide 27 mmol/L N 22-32 Anion Gap 6 mmol/L N 2-11 Glucose 94 mg/dL N 70-100 Blood Urea Nitrogen 10 mg/dL N 6-24 Creatinine 0.73 mg/dL N 0.51-0.95 BUN/Creatinine Ratio 13.7 N 8-20 Calcium 9.0 mg/dL N 8.6-10.3 Total Protein 6.5 g/dL N 6.4-8.9 Albumin 3.9 g/dL N 3.2-5.2 Globulin 2.6 g/dL N 2-4 Albumin/Globulin Ratio 1.5 N 1-3 Total Bilirubin 0.50 mg/dL N 0.2-1.0 Alkaline Phosphatase 78 U/L N 34-104 Alt 25 U/L N 7-52 Ast 23 U/L N 13-39 Egfr Non- 80.0 N >60 Egfr 102.9 N >60 16 Laboratory 11/28/2014 [facility] TSH (Thyroid 0.61 N 0.34- 5.60 [address] H[address]) ?IU/[place] [address] [phone] Laboratory 11/09/2014 [facility] D Dimer < 200 N Less Than 18 test finding [address] Quantitative ng/mL 230 [place] [address] [phone] C Reactive Protein 9.70 mg/L High < 5.00 19 CKMB 11/09/2014 [facility] CKMB ng/mL 2.3 ng/mL N 0.6-6.[address] [place] [address] [phone] Laboratory test 11/09/2014 [facility] Creatine 201 U/L N 10- [address] Kinase(CK) [place] [address] [phone] Troponin-I (TnI) 0.00 ng/mL N <0.03 20 Comp Metabolic Panel 11/09/2014 [facility] Sodium 141 mmol/L N 133-[address] [place] [address] [phone] Potassium 3.6 mmol/L N 3.5-5.0 Chloride 108 mmol/L N 101-111 Co2 Carbon Dioxide 27 mmol/L N 22-32 Anion Gap 6 mmol/L N 2-11 Glucose 92 mg/dL N 70-100 Blood Urea Nitrogen 11 mg/dL N 6-24 Creatinine 0.70 mg/dL N 0.51-0.95 BUN/Creatinine Ratio 15.7 N 8-20 Calcium 8.9 mg/dL N 8.6-10.3 Total Protein 7.3 g/dL N 6.4-8.9 Albumin 4.1 g/dL N 3.2-5.2 Globulin 3.2 g/dL N 2-4 Albumin/Globulin Ratio 1.3 N 1-3 Total Bilirubin 0.60 mg/dL N 0.2-1.0 Alkaline Phosphatase 75 U/L N 34-104 Alt 14 U/L N 7-52 Ast 19 U/L N 13-39 Egfr Non- 84.0 N >60 Egfr 108.0 N >60 21 Laboratory test 11/09/2014 [facility] Partial 35.6 seconds N 26.0-36.[address] [place] [address] PTT [phone] Lactic Acid 0.8 mmol/L N 0.5-2.2 B-Type Natriuretic Peptide BNP 69 pg/mL N 22 Inr/Protime 11/09/2014 [facility] Inr 0.97 N 0.78-1.[address] [place] [address] [phone] CBC Auto Diff 11/09/2014 [facility] White Blood 8.0 10^3/uL N 4.8-10.[address] [place] [address] [phone] Red Blood Count 4.34 10^6/uL N 4.0-5.4 Hemoglobin 13.5 g/dL N 12.0-16.0 Hematocrit 41 % N 35-47 Mean Corpuscular Volume 94 fL N 80-97 Mean Corpuscular Hemoglobin 31 pg N 27-31 Mean Corpuscular HGB Conc 33 g/dL N 31-36 Red Cell Distribution Width 13 % N 10.5-15 Platelet Count 179 10^3/uL N 150-450 Mean Platelet Volume 9 um3 N 7.4-10.4 Abs Neutrophils 3.9 10^3/uL N 1.5-7.7 Abs Lymphocytes 3.4 10^3/uL N 1.0-4.8 Abs Monocytes 0.5 10^3/uL N 0-0.8 Abs Eosinophils 0.2 10^3/uL N 0-0.6 Abs Basophils 0.1 10^3/uL N 0-0.2 Abs Nucleated RBC 0.01 10^3/uL N Granulocyte % 48.1 % N 38-83 Lymphocyte % 41.9 % N 25-47 Monocyte % 6.8 % N 1-9 Eosinophil % 2.5 % N 0-6 Basophil % 0.7 % N 0-2 Nucleated Red Blood Cells % 0.1 N Lipid Profile 09/08/2013 [facility] Triglycerides 106 mg/dL N 23, 24 (Trig/Chol/HDL) [address] [place] [address] [phone] Cholesterol 146 mg/dL N 25 HDL Cholesterol 49.3 mg/dL N 26 LDL Cholesterol 76 mg/dL N 27 Comp Metabolic Panel 09/08/2013 [facility] Sodium 140 mmol/L N 133-145 [address] [place] [address] [phone] Potassium 3.8 mmol/L N 3.7-5.6 Chloride 107 mmol/L N 101-111 Co2 Carbon Dioxide 30 mmol/L N 22-32 Anion Gap 3 mmol/L N 2-11 Glucose 96 mg/dL N 70-100 Blood Urea Nitrogen 11 mg/dL N 6-24 Creatinine 0.78 mg/dL N 0.51-0.95 BUN/Creatinine Ratio 14.1 N 8-20 Calcium 9.3 mg/dL N 8.6-10.3 Total Protein 7.3 g/dL N 6.4-8.9 Albumin 4.2 g/dL N 3.2-5.2 Globulin 3.1 g/dL N 2-4 Albumin/Globulin Ratio 1.4 N 1-3 Total Bilirubin 0.50 mg/dL N 0.2-1.0 Alkaline Phosphatase 92 U/L N 34-104 Alt 20 U/L N 7-52 Ast 23 U/L N 13-39 Egfr Non- 74.6 N >60 Egfr 95.9 N >60 28 Lipid Profile 08/17/2012 [facility] Triglycerides 81 mg/dL 40 -200 (Trig/Chol/HDL) [address] [place] [address] [phone] Cholesterol 141 mg/dL Less than 200 HDL Cholesterol 46 mg/dL 40-60 29 Cholesterol/HDL Ratio 3.1 Average 1-4.44 LDL Cholesterol 78.8 Less Than 100 30 Laboratory test 08/12/2012 [facility] Cytology RUN DATE: [address] 08/13/ <[place] [address] NOTE> [phone] Basic Metabolic 08/12/2012 [facility] Sodium 141 mmol/L 133- [address] [place] [address] [phone] Potassium 4.0 mmol/L 3.5-5.0 Chloride 107 mmol/L 101-111 Co2 Carbon Dioxide 27.0 mmol/L 22-32 Anion Gap 7.0 mmol/L 2-11 Glucose 78 mg/dL 70-100 Blood Urea Nitrogen 8 mg/dL 6-24 Creatinine 0.70 mg/dL 0.50-1.40 BUN/Creatinine Ratio 11.4 8-20 Calcium 9.4 mg/dL 8.1-9.9 Egfr Non- 84.8 >60 Egfr 109.0 >60 32 CBC No Diff 08/12/2012 [facility] White Blood 8.0 10^3/uL 4.8 -10.[address] [place] [address] [phone] Red Blood Count 4.55 10^6/uL 4.0-5.4 Hemoglobin 14.7 g/dL 12.0-16.0 Hematocrit 43 % 35-47 Mean Corpuscular Volume 95 fL 80-97 Mean Corpuscular Hemoglobin 32 pg High 27-31 Mean Corpuscular HGB Conc 34 g/dL 31-36 Red Cell Distribution Width 13 % 10.5-15 Platelet Count (SEE NOTE) 10^3/uL 150-450 33 Inr/Protime 07/20/2012 [facility] Inr 0.97 0.87-0.[address] [place] [address] [phone] Basic Metabolic 07/20/2012 [facility] Sodium 140 mmol/L 133- [address] [place] [address] [phone] Potassium 3.6 mmol/L 3.5-5.0 Chloride 107 mmol/L 101-111 Co2 Carbon Dioxide 25.0 mmol/L 22-32 Anion Gap 8.0 mmol/L 2-11 Glucose 101 mg/dL High 70-100 Blood Urea Nitrogen 9 mg/dL 6-24 Creatinine 0.70 mg/dL 0.50-1.40 BUN/Creatinine Ratio 12.9 8-20 Calcium 9.3 mg/dL 8.1-9.9 Egfr Non- 84.8 >60 Egfr 109.0 >60 34 CBC With 07/20/2012 [facility] White Blood 5.3 10^3/uL 4.8- 10.8 Manual Diff [address] [place] [address] [phone] Red Blood Count 4.51 10^6/uL 4.0-5.4 Hemoglobin 14.4 g/dL 12.0-16.0 Hematocrit 42 % 35-47 Mean Corpuscular Volume 94 fL 80-97 Mean Corpuscular Hemoglobin 32 pg High 27-31 Mean Corpuscular HGB Conc 34 g/dL 31-36 Red Cell Distribution Width 13 % 10.5-15 Platelet Count 213 10^3/uL 150-450 Mean Platelet Volume 8 um3 7.4-10.4 Abs Neutrophils 2.0 10^3/uL 1.5-7.7 Abs Lymphocytes 2.6 10^3/uL 1.0-4.8 Abs Monocytes 0.5 10^3/uL 0-0.8 Abs Eosinophils 0.2 10^3/uL 0-0.6 Abs Basophils 0 10^3/uL 0-0.2 Abs Nucleated RBC 0 10^3/uL Neutrophil % 41 % 38-83 Band % 1 % 0-8 Lymphocytes % 50 % High 25-47 Monocytes % 6 % 0-13 Eosinophils % 1 % 0-6 Reactive Lymph % 1 % 0-6 RBC Morphology Normal Normal Cath Panel 07/20/2012 [facility] Activated 33.3 seconds 22.18 -37.[address] [place] [address] Time [phone] NO TRACKING 2 SEE RESULT BELOW Name: SELIN SHARP : [address]: Corey Eastman MD Acct: [id number] Unit: [id number] AGE: 66 Location: ENDO Re02/17/17 SEX: F Status: DEP REF SPEC: [id number] BOBBI: 02/17/17-[address] [facility] [address]: Corey Eastman MD REQ: [id number] RECD: 02/17/170138 STATUS: JANET BARRON DR: Yelitza Mane MD _ ORDERED: LEVEL 4 COMMENTS: NO TRACKING FINAL DIAGNOSIS Colon, transverse, biopsy: -- Benign colonic mucosa with surface hyperplastic change. CLINICAL HISTORY Usual bowel habit ? every day early, occasionally 2x per day; bloated a lot POST-OPERATIVE DIAGNOSIS Colonoscopy to cecum, excellent prep. Conclusions/Plan: Internal hemorrhoids ; transverse nodule; bright red blood per rectum; adhesions GROSS DESCRIPTION The specimen is received in formalin labeled, Biopsy Transverse Colon Polyp, and consists of two pierson irregular soft tissue fragments measuring 0.3 x 0.3 x 0.1 cm and 0.5 by up to 0.2 x 0.1 cm which are submitted entirely in one cassette. Signed (signature on file) Breana Lunsford MD 1338 END OF REPORT * ML=Testing performed at Main Lab DEPARTMENT OF PATHOLOGY, [address] [place] [address] Connor Fox M.D. Director [facility] # [id number] 3 Because ethnic data is not always readily available, this report includes an eGFR for both -Americans and non- Americans. The National Kidney Disease Education Program (NKDEP) does not endorse the use of the MDRD equation for patients that are not between the ages of 18 and 70, are , have extremes of body size, muscle mass, or nutritional status, or are non- or non-. According to the National Kidney Foundation, irrespective of diagnosis, the stage of the disease is based on the level of kidney function: Stage Description GFR(mL/min/1.73 m(2)) 1 Kidney damage with normal or decreased GFR 90 2 Kidney damage with mild decrease in GFR 60-89 3 Moderate decrease in GFR 30-59 4 Severe decrease in GFR 15-29 5 Kidney failure <15 (or dialysis) 4 SEE RESULT BELOW Name: SELIN SHARP : [address]: Danny Bo MD Acct: [id number] Unit: [id number] AGE: 66 Location: [facility] Re10/14/16 SEX: F Status: REG REF SPEC: [id number] BOBBI: 10/14/16-[address] [facility] [address]: Danny Bo MD REQ: [id number] RECD: 10/14/16 STATUS: SOUT _ ORDERED: LEVEL [address] generator, removal: Foreign body ([facility] generator) (Gross diagnosis). 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 The following description is identified: [facility] CHRIS RIDLEY Model [id number] High Voltage Can VVED DDDR S/N [id number]. Per established hospital medical staff protocol, no tissue is submitted. Gross only. Signed (signature on file) Connor Fox MD 0948 END OF REPORT * ML=Testing performed at Main Lab DEPARTMENT OF PATHOLOGY, [address] [place] [address] Connor Fox M.D. Director [facility] # [id number] 5 soon 6 soon 7 Because ethnic data is not always readily available, this report includes an eGFR for both -Americans and non- Americans. The National Kidney Disease Education Program (NKDEP) does not endorse the use of the MDRD equation for patients that are not between the ages of 18 and 70, are , have extremes of body size, muscle mass, or nutritional status, or are non- or non-. According to the National Kidney Foundation, irrespective of diagnosis, the stage of the disease is based on the level of kidney function: Stage Description GFR(mL/min/1.73 m(2)) 1 Kidney damage with normal or decreased GFR 90 2 Kidney damage with mild decrease in GFR 60-89 3 Moderate decrease in GFR 30-59 4 Severe decrease in GFR 15-29 5 Kidney failure <15 (or dialysis) 8 Because ethnic data is not always readily available, this report includes an eGFR for both -Americans and non- Americans. The National Kidney Disease Education Program (NKDEP) does not endorse the use of the MDRD equation for patients that are not between the ages of 18 and 70, are , have extremes of body size, muscle mass, or nutritional status, or are non- or non-. According to the National Kidney Foundation, irrespective of diagnosis, the stage of the disease is based on the level of kidney function: Stage Description GFR(mL/min/1.73 m(2)) 1 Kidney damage with normal or decreased GFR 90 2 Kidney damage with mild decrease in GFR 60-89 3 Moderate decrease in GFR 30-59 4 Severe decrease in GFR 15-29 5 Kidney failure <15 (or dialysis) 9 [facility] Severe Sepsis and Septic Shock Management Bundle Measure requires all lactic acids initially measuring >2.0 mmol/L be repeated. 10 Desirable <150 Borderline high 150-199 High 200-499 Very High >500 11 Desirable <200 Borderline high 200-239 High >239 12 Low <40 Desirable: 40-60 High: >60 13 Desirable: <100 mg/dL Near Optimal: 100-129 mg/dL Borderline High: 130-159 mg/dL High: 160-189 mg/dL Very High: >189 mg/dL 14 Because ethnic data is not always readily available, this report includes an eGFR for both -Americans and non- Americans. The National Kidney Disease Education Program (NKDEP) does not endorse the use of the MDRD equation for patients that are not between the ages of 18 and 70, are , have extremes of body size, muscle mass, or nutritional status, or are non- or non-. According to the National Kidney Foundation, irrespective of diagnosis, the stage of the disease is based on the level of kidney function: Stage Description GFR(mL/min/1.73 m(2)) 1 Kidney damage with normal or decreased GFR 90 2 Kidney damage with mild decrease in GFR 60-89 3 Moderate decrease in GFR 30-59 4 Severe decrease in GFR 15-29 5 Kidney failure <15 (or dialysis) 15 Because ethnic data is not always readily available, this report includes an eGFR for both -Americans and non- Americans. The National Kidney Disease Education Program (NKDEP) does not endorse the use of the MDRD equation for patients that are not between the ages of 18 and 70, are , have extremes of body size, muscle mass, or nutritional status, or are non- or non-. According to the National Kidney Foundation, irrespective of diagnosis, the stage of the disease is based on the level of kidney function: Stage Description GFR(mL/min/1.73 m(2)) 1 Kidney damage with normal or decreased GFR 90 2 Kidney damage with mild decrease in GFR 60-89 3 Moderate decrease in GFR 30-59 4 Severe decrease in GFR 15-29 5 Kidney failure <15 (or dialysis) 16 Because ethnic data is not always readily available, this report includes an eGFR for both -Americans and non- Americans. The National Kidney Disease Education Program (NKDEP) does not endorse the use of the MDRD equation for patients that are not between the ages of 18 and 70, are , have extremes of body size, muscle mass, or nutritional status, or are non- or non-. According to the National Kidney Foundation, irrespective of diagnosis, the stage of the disease is based on the level of kidney function: Stage Description GFR(mL/min/1.73 m(2)) 1 Kidney damage with normal or decreased GFR 90 2 Kidney damage with mild decrease in GFR 60-89 3 Moderate decrease in GFR 30-59 4 Severe decrease in GFR 15-29 5 Kidney failure <15 (or dialysis) 17 FASTING 18 Please note: The following may produce a false positive D Dimer test: - Rheumatoid factor greater than 60 IU/ml - Plasma hemoglobin greater than 0.05 gm/dl - Bilirubin greater than 50 mg/dl - Lipids greater than 1000 mg/dl - FDP greater than 20 ug/ml 19 Acute inflammation: >10.00 20 Reference Range and Interpretation: TnI (ng/mL) Interpretation Less Than 0.03 ng/mL Not supportive of diagnosis of SD 0.03 - 0.50 ng/mL Indeterminate: suggest serial studies if clinically indicated. Greater than 0.5 ng/mL Consistent with diagnosis of SD 21 Because ethnic data is not always readily available, this report includes an eGFR for both -Americans and non- Americans. The National Kidney Disease Education Program (NKDEP) does not endorse the use of the MDRD equation for patients that are not between the ages of 18 and 70, are , have extremes of body size, muscle mass, or nutritional status, or are non- or non-. According to the National Kidney Foundation, irrespective of diagnosis, the stage of the disease is based on the level of kidney function: Stage Description GFR(mL/min/1.73 m(2)) 1 Kidney damage with normal or decreased GFR 90 2 Kidney damage with mild decrease in GFR 60-89 3 Moderate decrease in GFR 30-59 4 Severe decrease in GFR 15-29 5 Kidney failure <15 (or dialysis) 22 >100 to <200 pg/mL: likely compensated congestive heart failure (CHF) 200 to 400 pg/mL: likely moderate CHF >400 pg/mL: likely moderate to severe CHF 23 FASTING 24 Desirable <150 Borderline high 150-199 High 200-499 Very High >500 25 Desirable <200 Borderline high 200-239 High >239 26 Low <40 Desirable: 40-60 High: >60 27 Desirable <100 Near Optimal 100-129 Borderline high 130-159 High 160-189 Very High >189 28 Because ethnic data is not always readily available, this report includes an eGFR for both -Americans and non- Americans. The National Kidney Disease Education Program (NKDEP) does not endorse the use of the MDRD equation for patients that are not between the ages of 18 and 70, are , have extremes of body size, muscle mass, or nutritional status, or are non- or non-. According to the National Kidney Foundation, irrespective of diagnosis, the stage of the disease is based on the level of kidney function: Stage Description GFR(mL/min/1.73 m(2)) 1 Kidney damage with normal or decreased GFR 90 2 Kidney damage with mild decrease in GFR 60-89 3 Moderate decrease in GFR 30-59 4 Severe decrease in GFR 15-29 5 Kidney failure <15 (or dialysis) 29 HDL Interpretation: Undesirable: High Risk: Less than 40 mg/dL Desirable: Low Risk: Greater than 60 mg/dL 30 LDL Interpretation: Low Risk Optimal Level: LDL Less than 100 mg/dL Near or Above Optimal: LDL 100-129 mg/dL Borderline High Risk: LDL 130-159 mg/dL High Risk: LDL 160-189 mg/dL Very High Risk: LDL Greater than 189 mg/dL 31 RUN DATE: 08/13/12 [facility] LAB LIVE PAGE 1 RUN TIME: [address] [place] [id number] Specimen Inquiry Name: SELIN SHARP : [address]: Yelitza Mane MD Acct: [id number] Unit: [id number] AGE: 61 Location: [facility] Re08/12/12 SEX: F Status: REG REF SPEC: [id number] BOBBI: 08/12/12- SUBM DR: eYlitza Mane MD REQ: [id number] RECD: 08/12/12 STATUS: SOUT _ ORDERED: IMAGE ANALYSIS FINAL DIAGNOSIS Negative for Intraepithelial lesion or Malignancy A. Ectocervical/Endocervical Specimen Adequacy: Satisfactory of evaluation Transformation zone component identified Patient Information: HPV: Thin Layer Pap Test w/reflex to high risk HPV DNA testing when ASCUS Actual Specimen Date: 08/12/12 Lesion, grossly demonstrate: N Post Menopausal?: Y Previous Abnormal Pap Smears?:N Signed (signature on file) CARMEN Neil (ASCP) 08/13 5217 This Pap test was evaluated with the assistance of the [employer] Test Imaging System. Due to cytologic findings at the solar mechanical engineer microscope, comprehensive manual rescreening by a Sustainability Director may be required. The Pap Smear is a screening test designed to aid in the detection of premalignant and malignant conditions of the uterine cervix. It is not a diagnostic procedure and should not be used as the sole means of detecting cervical cancer. Both false- positive and false- negative reports do occur. Depending on your risk status, a Pap smear shoudl be obtained and evaluated every 1-3 years. END OF REPORT * ML=Testing performed at Main Lab DEPARTMENT OF PATHOLOGY, [address] [place] [address] Connor Fox M.D. Director [facility] Permit #[id number] 32 Because ethnic data is not always readily available, this report includes an eGFR for both -Americans and non- Americans. The National Kidney Disease Education Program (NKDEP) does not endorse the use of the MDRD equation for patients that are not between the ages of 18 and 70, are , have extremes of body size, muscle mass, or nutritional status, or are non- or non-. According to the National Kidney Foundation, irrespective of diagnosis, the stage of the disease is based on the level of kidney function: Stage Description GFR(mL/min/1.73 m(2)) 1 Kidney damage with normal or decreased GFR 90 2 Kidney damage with mild decrease in GFR 60-89 3 Moderate decrease in GFR 30-59 4 Severe decrease in GFR 15-29 5 Kidney failure <15 (or dialysis) 33 Platelets clumped. Unable to perform accurate count. 34 Because ethnic data is not always readily available, this report includes an eGFR for both -Americans and non- Americans. The National Kidney Disease Education Program (NKDEP) does not endorse the use of the MDRD equation for patients that are not between the ages of 18 and 70, are , have extremes of body size, muscle mass, or nutritional status, or are non- or non-. According to the National Kidney Foundation, irrespective of diagnosis, the stage of the disease is based on the level of kidney function: Stage Description GFR(mL/min/1.73 m(2)) 1 Kidney damage with normal or decreased GFR 90 2 Kidney damage with mild decrease in GFR 60-89 3 Moderate decrease in GFR 30-59 4 Severe decrease in GFR 15-29 5 Kidney failure <15 (or dialysis) Procedures Date Code Description Status 03/25/2018 21887 EKG Tracing & Interpretation Completed 12/02/2017 67023 ECHO Transthoracic, Real-Time 2D With Doppler And Completed Color Flow 12/02/2017 09676 ECHO Transthoracic, Real-Time 2D With Doppler And Completed Color Flow 11/19/2017 66653 Interrogation Implant Cardiovasc Monitor System Incl Completed Analysis Int 11/19/2017 91591 Interrogation Implant Cardiovasc Monitor System Incl Completed Analysis Int 11/19/2017 47239 Icd Eval With Inerative Adjustmt Dual Lead System Completed 11/19/2017 36233 Icd Eval With Inerative Adjustmt Dual Lead System Completed 08/27/2017 28840 EKG Tracing & Interpretation Completed 06/22/2017 45274 Icd Eval With Inerative Adjustmt Dual Lead System Completed 06/22/2017 96282 Icd Eval With Inerative Adjustmt Dual Lead System Completed 06/22/2017 29540 Interrogation Implant Cardiovasc Monitor System Incl Completed Analysis Int 06/22/2017 22889 Interrogation Implant Cardiovasc Monitor System Incl Completed Analysis Int 03/23/2017 11473 Interrogation Implant Cardiovasc Monitor System Incl Completed Analysis Int 03/23/2017 75998 Interrogation Implant Cardiovasc Monitor System Incl Completed Analysis Int 03/23/2017 03981 Icd Eval With Inerative Adjustmt Dual Lead System Completed 03/23/2017 18990 Icd Eval With Inerative Adjustmt Dual Lead System Completed 02/17/2017 [id number] Colonoscopy Completed 12/23/2016 14034 EKG Tracing & Interpretation Completed 11/14/2016 86190 Icd Eval With Inerative Adjustmt Dual Lead System Completed 10/14/2016 01061 Removal Dual Lead Pacing Cardioverter-Defibrillator Completed W/Replacmt 09/11/2016 04384 Interrogation Implant Cardiovasc Monitor System Incl Completed Analysis Int 09/11/2016 91250 Icd Eval With Inerative Adjustmt Dual Lead System Completed 08/18/2016 [id number] Mammogram Completed 07/29/2016 75405 Interrogation Implant Cardiovasc Monitor System Incl Completed Analysis Int 07/29/2016 25248 Icd Eval With Inerative Adjustmt Dual Lead System Completed 05/16/2016 74116 ECHO Transthoracic, Real-Time 2D With Doppler And Completed Color Flow 04/29/2016 02879 EKG Tracing & Interpretation Completed 04/22/2016 68397 Interrogation Implant Cardiovasc Monitor System Incl Completed Analysis Int 04/22/2016 73320 Icd Eval With Inerative Adjustmt Dual Lead System Completed 09/26/2015 68639 Interrogation Implant Cardiovasc Monitor System Incl Completed Analysis Int 09/26/2015 08614 Icd Eval With Inerative Adjustmt Dual Lead System Completed 05/15/2015 12925 Interrogation Implant Cardiovasc Monitor System Incl Completed Analysis Int 05/15/2015 10502 Interrogation Device Eval In Person W/DR Completed Analysis,Single,Dual,Mul 04/25/2015 79899 Treadmill Interp/Report Only Completed 04/25/2015 64184 Stress Test Supervsn W/Out I/R Completed 02/14/2015 96197 Icd Check Single,Dual Or Multiple In Person W/DR Incl Completed Heart Rhyth 02/13/2015 84612 EKG Tracing & Interpretation Completed 01/31/2015 08123 ECHO Transthoracic, Real-Time 2D With Doppler And Completed Color Flow 01/08/2015 79105 EKG Tracing & Interpretation Completed 08/17/2014 85609 Interrogation Implant Cardiovasc Monitor System Incl Completed Analysis Int 08/17/2014 14174 Icd Eval With Inerative Adjustmt Dual Lead System Completed 05/19/2014 84803 ECHO Transthoracic, Real-Time 2D With Doppler And Completed Color Flow 04/25/2014 34207 EKG Tracing & Interpretation Completed 03/06/2014 33336 Icd Check Single,Dual Or Multiple In Person W/DR Incl Completed Heart Rhyth 11/14/2013 02628 Icd Check Single,Dual Or Multiple In Person W/DR Incl Completed Heart Rhyth 10/14/2013 07797 ECHO Transthoracic, Real-Time 2D With Doppler And Completed Color Flow 05/26/2013 79575 Icd Check Single,Dual Or Multiple In Person W/DR Incl Completed Heart Rhyth 05/13/2013 [id number] Bone Mineral Density Test Completed 05/13/2013 [id number] Mammogram Completed 03/14/2013 88135 EKG Tracing & Interpretation Completed 02/09/2013 08049 Icd Check Single,Dual Or Multiple In Person W/DR Incl Completed Heart Rhyth 01/06/2013 93578 ECHO Transthoracic, Real-Time 2D With Doppler And Completed Color Flow 09/14/2012 93169 Icd Check Single,Dual Or Multiple In Person W/DR Incl Completed Heart Rhyth 07/23/2012 51041 Cath PLMT&NJX L Ventriculog Img S&I Completed 07/23/2012 16123 Left Health Catheterization W/Inj For Left Completed Ventriculography,S&I 07/23/2012 65400 Left Heart Cath. Incl S/I Coronaries, Angio S/I V Gram Completed If Done 07/15/2012 56182 ECHO Transthoracic, Real-Time 2D With Doppler And Completed Color Flow 07/14/2012 22549 EKG Tracing & Interpretation Completed 02/17/2012 11447 ECHO Transthoracic, Real-Time 2D With Doppler And Completed Color Flow 06/27/2011 46026 EKG Tracing & Interpretation Completed 06/16/2011 53704 Left Heart Cath. Incl S/I Coronaries, Angio S/I V Gram Completed If Done 06/16/2011 12928 Cath PLMT&NJX L Ventriculog Img S&I Completed 06/16/2011 70310 Left Health Catheterization W/Inj For Left Completed Ventriculography,S&I 06/16/2011 81197 EKG, Interpretation Only Completed 06/15/2011 55469 Color Flow Doppler/Interp & Reprt Completed 06/15/2011 44133 Pulse Wave/Continuous-Interp.RPT Completed 06/15/2011 82406 ECHO Transthorasic Realtime 2D W Doppler & Color Flow Completed Hosp 06/15/2011 15430 EKG, Interpretation Only Completed 06/14/2011 42607 EKG, Interpretation Only Completed 06/14/2011 45745 EKG, Interpretation Only Completed 04/09/2011 55560 EKG Tracing & Interpretation Completed 09/09/2010 73792 EKG Tracing & Interpretation Completed 09/05/2010 83746 ECHO Transthoracic, Real-Time 2D With Doppler And Completed Color Flow 07/25/2010 47699 Carpal Tunnel Release Completed 06/12/2010 65630 Rad Exam; Wrist, Comp, Min 3 Views Completed 04/12/2010 34108 EKG Tracing & Interpretation Completed 02/08/2010 82830 ECHO Transthoracic, Real-Time 2D With Doppler And Completed Color Flow 12/11/2009 49777 Holter Monitor Completed 12/05/2009 32428 Selective Coronary Angioplasty Completed 12/05/2009 90223 S/I/R Inj Proc Vent And Or Atrial Completed 12/05/2009 00847 Coronary Angiography Completed 12/05/2009 94014 Inj Proc LFT Vent/LFT Atrl Angio Completed 12/05/2009 94070 Left Heart Catheterization Completed 12/05/2009 87526 EKG, Interpretation Only Completed 11/06/2009 93156 EKG Tracing & Interpretation Completed 10/01/2009 64927 ECHO Transthoracic, Real-Time 2D With Doppler And Completed Color Flow 11/16/2007 [id number] Colonoscopy Completed Encounters Type Date Location Provider Dx Diagnosis Office Visit 08/27/2017 [facility] Junior Clark I42.9 Cardiomyopathy , 3:20p Of Raquel Hernandez M.D. unspecified Z95.810 Presence of automatic (implantable) cardiac defibrillator F17.211 Nicotine dependence, cigarettes, in remission R94.31 Abnormal electrocardiogram [ECG] [EKG] I25.10 Athscl heart disease of [place] coronary artery w/o ang pctrs Office Visit 12/23/2016 1:10p [facility] Junior Clark I49.5 Sick sinus Blanca Hernandez syndrome I42.9 Cardiomyopathy, unspecified Z95.810 Presence of automatic (implantable) cardiac defibrillator R06.02 Shortness of breath F17.211 Nicotine dependence, cigarettes, in remission R94.31 Abnormal electrocardiogram [ECG] [EKG] Office Visit 12/15/2016 9:50a [facility] Yelitza Mane, Z00.00 Encntr for Medicine - M.DAaliyah general adult [place] medical exam w/o abnormal findings K92.1 Melena R14.0 Abdominal distension (gaseous) Z11.59 Encounter for screening for other viral diseases Office Visit 09/19/2016 Ralph Carroll I42.9 Cardiomyopathy, 10:45a Cardiology Hillary Bo M.D. unspecified [facility] Z95.810 Presence of automatic (implantable) cardiac defibrillator Office Visit 08/14/2016 1:00p [facility] Yelitza Mane, R21 Rash and other Medicine - M.DAaliyah nonspecific skin [place] eruption I10 Essential (primary) hypertension E78.2 Mixed hyperlipidemia Z12.31 Encntr screen mammogram for malignant neoplasm of breast F17.211 Nicotine dependence, cigarettes, in remission Office Visit 04/29/2016 1:10p [facility] Junior Clark I10 Essential Blanca Hernandez (primary) hypertension E78.2 Mixed hyperlipidemia R06.02 Shortness of breath Office Visit 05/07/2015 9:30a [facility] Dolores Julian, I10 Essential (primary) [place] hypertension I42.9 Cardiomyopathy, unspecified Z95.810 Presence of automatic (implantable) cardiac defibrillator Office Visit 04/03/2015 11:00a [facility] Nurse Visit C I10 Essential Medicine - (primary) [place] hypertension Office Visit 03/26/2015 1:20p [facility] Yelitza Z00.00 Encntr for general Medicine - Blanca Mane adult medical exam [place] w/o abnormal findings I10 Essential (primary) hypertension Z23 Encounter for immunization Z11.59 Encounter for screening for other viral diseases F17.211 Nicotine dependence, cigarettes, in remission Office Visit 02/13/2015 11:00a [facility] Dolores Julian, R06.02 Shortness of PA breath I10 Essential (primary) hypertension I42.9 Cardiomyopathy, unspecified Z95.810 Presence of automatic (implantable) cardiac defibrillator R07.9 Chest pain, unspecified Office Visit 01/18/2015 1:30p [facility] Dolores Julian, I10 Essential (primary) [place] hypertension I42.9 Cardiomyopathy, unspecified Z95.810 Presence of automatic (implantable) cardiac defibrillator Office Visit 01/08/2015 3:40p [facility] Junior S. I10 Essential Blanca Hernandez (primary) hypertension I42.9 Cardiomyopathy, unspecified Z95.810 Presence of automatic (implantable) cardiac defibrillator R06.02 Shortness of breath E78.2 Mixed hyperlipidemia R00.2 Palpitations Office Visit 10/30/2014 12:10p [facility] Yelitza 401.9 Hypertension Unspec Medicine - Blanca Mane [place] 780.4 Dizziness & Giddiness 368.8 Visual Disturbances Other Spec Office Visit 05/23/2014 3:00p [facility] Dolores Julian, V45.02 Cardiac PA Defibrillator Automatic Implantable Postsurgical 425.4 Cardiomyopathy Other Prim 786.05 Shortness Of Breath 272.2 Hyperlipidemia Mixed 785.1 Palpitations Office Visit 04/25/2014 [facility] Junior S. 425.4 Cardiomyopathy 2:20p Cardiology Blanca Hernandez Other Prim V45.02 Cardiac Defibrillator Automatic Implantable Postsurgical 401.1 Hypertension Benign 786.05 Shortness Of Breath Office Visit 07/26/2013 3:10p [facility] Medicine Yelitza Mane M.D. 786.2 Cough - [place] 311 Depressive Disorder Not Elsewhere Spec 401.1 Hypertension Benign 719.45 Pain Joint Pelvic Region & Thigh Office Visit 07/06/2013 1:50p [facility] Internal Medicine Yelitza Mane M.D. 786.2 Cough - [place] 401.1 Hypertension Benign Office Visit 04/07/2013 2:10p [facility] Medicine Yelitza Mane M.D. 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 425.4 Cardiomyopathy 1:20p Cardiology Blanca Hernandez Other Prim V45.02 Cardiac Defibrillator Automatic Implantable Postsurgical 401.1 Hypertension Benign 794.31 Electrocardiogram (ECG) (EKG) Abnormal 414.01 Coronary Atherosclerosis [place] Office Visit 10/27/2012 2:00p Neurosurgery Karl Heather, 721.0 Spondylosis Services Of [facility] Blanca Cervical W/O Myelopathy Office Visit 09/28/2012 10:10a [facility] Yelitza 311 Depressive Brian Mane M.D. Disorder Not [place] Elsewhere Spec 722.91 Disc Disorder Other & Unspec Cervical Region 305.1 Tobacco Use Disorder Office Visit 09/14/2012 10:45a [facility] Nurse Visit 401.1 Hypertension cc Benign Office Visit 08/12/2012 11:10a [facility] Yelitza 722.91 Disc Disorder Brian Mane M.D. Other & Unspec [place] Cervical Region V70.0 Examination General Medical Routine AT [facility] Care Facility 311 Depressive Disorder Not Elsewhere Spec 305.1 Tobacco Use Disorder V76.19 Screening Breast Exam Malignant Neoplasms Other V77.91 Screening For Lipoid Disorders 781.91 Loss Of Height V06.1 Sbtxhkpgat-Uadlajc-Nyhnmcqr Combined (DTaP) V76.2 Screening Malignant Neoplasm Cervix Office Visit 07/28/2012 James Pacheco S. 414.01 Coronary 4:20p Cardiology Blanca Hernandez Atherosclerosis [place] 425.9 Cardiomyopathy Secondary Unspecified 401.1 Hypertension Benign Office Visit 07/23/2012 James Pacheco S. 414.01 Coronary 11:30a Cardiology Blanca Hernandez Atherosclerosis [place] 794.31 Electrocardiogram (ECG) (EKG) Abnormal 425.9 Cardiomyopathy Secondary Unspecified 401.1 Hypertension Benign Office Visit 07/22/2012 9:50a [facility] Internal Yelitza Mane, 722.91 Disc Disorder Medicine - M.D. Other & Unspec [place] Cervical Region 722.91 Disc Disorder Other & Unspec Cervical Region 722.92 Disc Disorder Other & Unspec Thoracic Region 722.92 Disc Disorder Other & Unspec Thoracic Region 311 Depressive Disorder Not Elsewhere Spec 305.1 Tobacco Use Disorder Office Visit 07/16/2012 James Pacheco S. 425.9 Cardiomyopathy 3:00p Cardiology Blanca Hernandez Secondary Unspecified 414.01 Coronary Atherosclerosis [place] 794.31 Electrocardiogram (ECG) (EKG) Abnormal 401.9 Hypertension Unspec Office Visit 07/14/2012 James Pacheco S. 425.9 Cardiomyopathy 2:20p Cardiology Blanca Hernandez Secondary Unspecified 414.01 Coronary Atherosclerosis [place] 794.31 Electrocardiogram (ECG) (EKG) Abnormal 401.9 Hypertension Unspec 272.2 Hyperlipidemia Mixed Office Visit 03/04/2012 3:00p [facility] Nurse Visit cc 401.1 Hypertension Benign Office Visit 06/27/2011 9:40a [facility] Junior S. 427.9 Cardiac Maghairis, Dysrhythmia Unspec M.DAaliyah 780.2 Syncope & Collapse 425.9 Cardiomyopathy Secondary Unspecified 414.01 Coronary Atherosclerosis [place] 794.31 Electrocardiogram (ECG) (EKG) Abnormal Office 06/16/2011 James Pacheco S. 794.31 Electrocardiogram Visit 9:08a Stella Hernandez M.D. (ECG) (EKG) Abnormal 410.71 Myocardial Infarc Acute Subendocardial Initial Episode Care 414.01 Coronary Atherosclerosis [place] 425.9 Cardiomyopathy Secondary Unspecified 401.1 Hypertension Benign 780.2 Syncope & Collapse Office Visit 06/15/2011 James Pastor 410.71 Myocardial Infarc 3:13p Cardiology Blanca Durand Acute Subendocardial Initial Episode Care 786.50 Pain Chest Unspec 410.71 Myocardial Infarc Acute Subendocardial Initial Episode Care 425.4 Cardiomyopathy Other Prim Office Visit 06/14/2011 James Pastor 410.71 Myocardial Infarc 3:23p Stella Durand M.D. Acute Subendocardial Initial Episode Care 780.2 Syncope & Collapse Office Visit 04/09/2011 James Pacheco SAaliyah 414.0 Coronary 9:40a Stella Hernandez M.D. Atherosclerosis 425.9 Cardiomyopathy Secondary Unspecified 401.9 Hypertension Unspec 794.31 Electrocardiogram (ECG) (EKG) Abnormal Office Visit 09/09/2010 James Pacheco SAaliyah 414.0 Coronary 10:00a Stella Hernandez M.D. Atherosclerosis 425.9 Cardiomyopathy Secondary Unspecified 401.9 Hypertension Unspec 794.31 Electrocardiogram (ECG) (EKG) Abnormal Office Visit 06/26/2010 2:45p Orthopedic Felipe Colbert, 727.05 Tenosynovitis Hand Services Of M.DAaliyah & Wrist Other C.M.A. 354.0 Carpal Tunnel Syndrome Office Visit 06/12/2010 1:30p Orthopedic Felipe Colbert, 727.05 Tenosynovitis Hand Services Of M.DAaliyha & Wrist Other C.M.A. 354.0 Carpal Tunnel Syndrome Office Visit 04/12/2010 James Clark 425.9 Cardiomyopathy 10:00a Stella Hernandez M.D. Secondary Unspecified 401.9 Hypertension Unspec 414.0 Coronary Atherosclerosis Office Visit 12/10/2009 James Clark 425.9 Cardiomyopathy 2:40p Stella Hernandez M.D. Secondary Unspecified 414.0 Coronary Atherosclerosis Office Visit 11/06/2009 2:20p [facility] Stella Hernandez, 782.3 Edema M.DAaliyah 401.9 Hypertension Unspec 786.05 Shortness Of Breath 305.1 Tobacco Use Disorder 425.8 Cardiomyopathy Other Diseases Class Elsewhere Plan of Treatment 03/25/2018 - Junior Hernandez M.D.I42.9 Cardiomyopathy, unspecifiedFollow up:8 months ovZ95.810 Presence of automatic (implantable) cardiac ybgrhlszqqzqaC53.10 Atherosclerotic heart disease of [place] coronary artery with
[2018-04-07] MEDS ORDERED: NS 0.9% 1000 ML** 1,000 ML IV ONE (15:17)
[2018-04-07] MEDS ORDERED: Aspirin 81 mg CHEW TAB* 81 MG TAB.CHEW PO ONE (15:19)
[2018-04-07] MEDS ORDERED: amLODIPine TAB* 5 MG PO ONE (15:20)
[2018-04-07] MEDS ORDERED: Losartan TAB* 25 MG PO ONE (15:20)
[2018-04-07] MEDS ORDERED: Carvedilol TAB* 6.25 MG PO ONE (15:20)
--- NOTE | 2018-04-07 15:24 | ED ---
Palpitations / Dysrhythmia - HPI Summary HPI Summary: This pt is a 67 y/o female presenting to [facility] via EMS s/p pacemaker fired. Pt reports she was getting dressed after she took a shower and suddenly felt dizzy. She states her defibrillator fired and "it knocked her down." Pt denies chest pain during this episode. She then called her granddaughter to call EMS. Pt currently notes her chest feels different, she does not know if it's from the shock of the defibrillator or if she has chest pain. She states her dizziness is better than before. Additionally reports headache and blurry vision. Denies SOB, nausea, vomiting. Pt does have antihypertensive medications but has not taken them because she can 't afford them. Her pacemaker is [employer]. Dr. Bo is her biofuels technology development manager. - History of Current Complaint Chief Complaint: EDDizziness Time Seen by Provider: 04/07/18 15:12 Hx Obtained From: Patient Onset/Duration: Sudden Onset, Resolved Severity Initially: Moderate Severity Currently: Mild Aggravating: Exertion - while getting dressed Alleviating: Nothing Associated Signs & Symptoms: Dizzy, Chest Pain - Allergy/Home Medications Allergies/Adverse Reactions: Allergies Allergy/AdvReac Type Severity Reaction Status Date / Time latex Allergy Rash Verified 07/14/17 13:57 lisinopril Allergy Rash Verified 07/14/17 13:57 Penicillins Allergy Rash Verified 07/14/17 13:57 Home Medications: Home Medications Aspirin 81 mg CHEW TAB* [Aspirin Low Dose TAB*] 81 mg PO BEDTIME 04/07/18 [ History Confirmed 04/07/18] Carvedilol TAB* [Coreg TAB*] 3.125 mg PO BID 04/07/18 [History Confirmed ] Losartan TAB* [Cozaar TAB*] 100 mg PO DAILY 04/07/18 [History Confirmed 04/07/18 ] Omeprazole CAP (NF) [Prilosec CAP* 20 MG] 20 mg PO DAILY 04/07/18 [History Confirmed 04/07/18] Simvastatin [Zocor 5 MG-] 5 mg PO DAILY 04/07/18 [History Confirmed 04/07/18] Valsartan TAB* [Diovan TAB*] 160 mg PO BID 04/07/18 [History Confirmed 04/07/18] amLODIPine TAB* [Norvasc 5 mg TAB*] 5 mg PO DAILY 04/07/18 [History Confirmed ] PMH/Surg Hx/FS Hx/Imm Hx Cardiovascular History: Reports: Hx Angina, Hx Coronary Artery Disease, Hx Hypercholesterolemia, Hx Hypertension - W/MEDS, Hx Pacemaker/ICD, Other Cardiovascular Problems/Disorders - HAS A DefywireTRONIC HEART MONITOR X 1YR [facility] Denies: Hx Myocardial Infarction, Hx Valvular Heart Disease Respiratory History: Denies: Hx Asthma Musculoskeletal History: Denies: Hx Osteoporosis Sensory History: Denies: Hx Hearing Aid Psychiatric History: Denies: Hx Panic Disorder - Cancer History Hx Chemotherapy: No Hx Radiation Therapy: No - Surgical History Surgery Procedure, Year, and Place: *ECTOPIC ;partial hysterectomy. * FEEDING TUBE- DIFFICULTY EATING AN INFANT DUE TO DAIRY PRODUCTS- ALONG WITH A DYE THROUGH FEMORAL ARTERY TO SEE BLOOD FLOW AROUND ABD- NEEDLE ; BROKE OFF AND HAD TO HAVE SURGERY TO REMOVED BROKEN;. DEFIBRILATOR. NEED IN FEMERAL ARTERY;. *LOOP RECORDER -CARDIAC MONITORING- CL3VERTRONIC-REVEAL XT 9529-06/11 [facility] ( pt has a card and specifics on monitor in REPORT section in chart ) Infectious Disease History: No Infectious Disease History: Denies: Traveled Outside the [place] in Last 30 Days - Family History Known Family History: Positive: Cardiac Disease, Hypertension, Diabetes - Social History Alcohol Use: None Substance Use Type: Reports: None Hx Tobacco Use: Yes Smoking Status (MU): Former Smoker Review of Systems Negative: Fever, Chills Positive: Blurred Vision Positive: Chest Pain Negative: Shortness Of Breath Negative: Vomiting, Nausea Neurological: Other - POS: dizziness Positive: Headache All Other Systems Reviewed And Are Negative: Yes Physical Exam - Summary Physical Exam Summary: VITAL SIGNS: Reviewed. GENERAL: Patient is a well-developed and nourished female who is lying comfortable in the stretcher. Patient is not in any acute respiratory distress. HEAD AND FACE: No signs of trauma. No ecchymosis, hematomas or skull depressions. No sinus tenderness. EYES: PERRLA, EOMI x 2, No injected conjunctiva, no nystagmus. EARS: Hearing grossly intact. Ear canals and tympanic membranes are within normal limits. MOUTH: Oropharynx within normal limits. NECK: Supple, trachea is midline, no adenopathy, no JVD, no carotid bruit, no c- spine tenderness, neck with full ROM. CHEST: Symmetric, no tenderness at palpation LUNGS: Clear to auscultation bilaterally. No wheezing or crackles. CVS: Regular rate and rhythm, S1 and S2 present, no murmurs or gallops appreciated. ABDOMEN: Soft, non-tender. No signs of distention. No rebound, no guarding, and no masses palpated. Bowel sounds are normal. EXTREMITIES: FROM in all major joints, no edema, no cyanosis or clubbing. NEURO: Alert and oriented x 3. No acute neurological deficits. Speech is normal and follows commands. SKIN: Dry and warm Triage Information Reviewed: Yes Vital Signs On Initial Exam: Initial Vitals Temp Pulse Resp BP Pulse Ox 97.6 F 64 18 180/97 99 04/07/18 14:56 04/07/18 14:56 04/07/18 14:56 04/07/18 14:56 04/07/18 14:56 Vital Signs Reviewed: Yes Diagnostics - Vital Signs Vital Signs Temp Pulse Resp BP Pulse Ox 04/07/18 14:56 97.6 F 64 18 180/97 99 - Laboratory Result Diagrams: 04/07/18 16:10 04/07/18 16:10 Lab Statement: Any lab studies that have been ordered have been reviewed, and results considered in the medical decision making process. - Radiology Chest XR Radiology Interpretation Completed By: Radiologist Summary of Radiographic Findings: IMPRESSION: No evidence of alveolar consolidation is noted. No pneumonia is noted. Pacemaker leads are in place. Dr. Pretty has reviewed this report. - EKG 16:00 Cardiac Rate: NL - at 63 bpm EKG Rhythm: Sinus Rhythm EKG Comparison: No Significant Change - similar to prior EKG on 09/09/16. Summary of EKG Findings: LVH. T wave inversion in leads II, III, aVF, V3-V6. Course/Dx - Course Assessment/Plan: All blood work without any significant abnormality except for the troponin was 0.04, urinalysis is contaminated. Chest x-ray impression: No evidence of alveolar consolidation is noted. No pneumonia is noted. Pacemaker leads in place. EKG shows a sinus rhythm 62 bpm with T-wave inversions in 2-3, aVF, V3 to V6 which is similar EKG to previous on 09/09/16. In the ED course and the patient was given her antihypertensive medications since she has not been taking them for a while. The patient was given amlodipine, Coreg, losartan an IV fluids. At this time we interrogated the defibrillator and the result is that the patient had and sustained an episode of V. tach which was when the defibrillator fired. I discussed my physical exam and findings with Dr. Hernandez, biofuels technology development manager, and we went through all the blood tests including increased troponin and he recommends for the patient to be discharged home with follow-up from Dr. Bo as an outpatient. He understands that the troponin is elevated and the magnesium is on the low side. Therefore he recommended to give 2 g of IV magnesium and discharge the patient home with follow-up from Dr. Bo. I discussed the findings, test results and plan with the patient and she agrees. Actually, the patient reports that she will not stay in the hospital. She was recommended to return to the emergency department if any of the symptoms return or she develops any new symptoms. The patient understands and agrees. Patient is hemodynamically stable, alert and oriented x3. - Diagnoses Differential Diagnosis/HQI/PQRI: Positive: Medication Induced, Paroxymal SVT, V- Tach Provider Diagnoses: V-tach, AICD (automatic cardioverter/defibrillator) present - Physician Notifications Discussed Care Of Patient With: Junior Hernandez - biofuels technology development manager Time Discussed With Above Provider: 16:58 Instructed by Provider To: Other - I discussed pt care with Dr. Hernandez biofuels technology development manager, who recommends to discharge the pt home and follow up with Dr. Bo. Additionally reports to encourage the pt to take her medications. Discharge - Sign-Out/Discharge Documenting (check all that apply): Patient Departure - Discharge home Patient Received Moderate/Deep Sedation with Procedure: No - Discharge Plan Condition: Stable Disposition: HOME Patient Education Materials: Implantable Cardioverter Defibrillator (DC) Referrals: Yomaira Landeros MD [Primary Care Provider] - Danny Bo MD [Medical Doctor] - Additional Instructions: FOLLOW UP WITH DR. BO, PIPED POCKET MACHINE OPERATOR, IN 2 DAYS. Please continue to take your medications. RETURN TO THE ED FOR ANY NEW OR WORSENING SYMPTOMS. - Billing Disposition and Condition Condition: STABLE Disposition: Home - Attestation Statements Document Initiated by Scribe: Yes Documenting Scribe: Patricia Gay Provider For Whom Scribe is Documenting (Include Credential): Shawn Pretty MD Scribe Attestation: I, Patricia Gay, scribed for Shawn Pretty MD on 04/09/18 at 2039. Scribe Documentation Reviewed: Yes Provider Attestation: The documentation as recorded by the Patricia montague accurately reflects the service I personally performed and the decisions made by me, Shawn Pretty MD Status of Scribe Document: Viewed
[2018-04-07 16:23] LABS: ABS Basophils 0.1 10^3/ul (0-0.2); ABS Eosinophils 0.1 10^3/ul (0-0.6); ABS Lymphocytes 1.8 10^3/ul (1.0-4.8); ABS Monocytes 0.5 10^3/ul (0-0.8); ABS Neutrophils 2.9 10^3/ul (1.5-7.7); ABS Nucleated RBC 0 10^3/ul; Eosinophil % 1.9 %; Hematocrit 43 % (35-47); Hemoglobin 14.3 g/dl (12.0-16.0); Lymphocyte % 34.5 %; Mean Corpuscular HGB Conc 33 g/dl (31-36); Mean Corpuscular Hemoglobin 30 pg (27-31); Mean Corpuscular Volume 90 fL (80-97); Mean Platelet Volume 8.4 fL (7.4-10.4); Nucleated Red Blood Cells % 0; Platelet Count 199 10^3/ul (150-450); Red Cell Distribution Width 14 % (10.5-15); White Blood Count 5.3 10^3/ul (3.5-10.8)
[2018-04-07 16:39] LABS: Albumin 4.1 g/dL (3.2-5.2); Albumin/Globulin Ratio 1.1 (1-3); BUN/Creatinine Ratio 16.4 (8-20); Calcium 9.3 mg/dL (8.6-10.3); EGFR African American 95.9 (>60); EGFR Non-African American 79.3 (>60); Globulin 3.7 g/dL (2-4); Magnesium 1.9 mg/dL (1.9-2.7); Potassium 4.1 mmol/L (3.5-5.0); Total Bilirubin 0.5 mg/dL (0.2-1.0); Total Protein 7.8 g/dL (6.4-8.9)
[2018-04-07 16:42] LABS: CKMB ng/mL 2.4 ng/mL (0.6-6.3)
[2018-04-07 16:43] LABS: Troponin I 0.04 ng/mL (<0.04)
[2018-04-07] MEDS ORDERED: Magnesium Sulfate 2 GM IV* 2 GM/50 ML BAG IVPB ONE (17:00)
[2018-04-07 17:17] LABS: TSH (Thyroid Stimulating Horm) 0.78 mcIU/mL (0.34-5.60)
[2018-04-07 17:56] LABS: Urine Appearance Cloudy; Urine Bacteria 1+ (Absent); Urine Bilirubin Negative (Negative); Urine Blood 1+ (Negative); Urine Color Yellow; Urine Glucose Negative (Negative); Urine Ketones Negative (Negative); Urine Nitrite Negative (Negative); Urine Protein Negative (Negative); Urine Red Blood Cell 1+(3-5/hpf) (Absent); Urine Squamous Epithelial Cell Present (Absent); Urine Urobilinogen Negative (Negative); Urine White Blood Cell 1+(6-10/hpf) (Absent)
[2018-04-07 18:21] VITALS: BP 169/104
== END 2018-04-07 18:20 | disposition home or self-care (01) ==
LOC: ED 14:32
DX: I47.2 Ventricular tachycardia (principal); Z95.810 Presence of automatic (implantable) cardiac defibrillator; I25.119 Atherosclerotic heart disease of native coronary artery with unspecified angina pectoris; I10 Essential (primary) hypertension; Z88.0 Allergy status to penicillin; Z88.8 Allergy status to other drugs, medicaments and biological substances; Z91.040 Latex allergy status; Z87.891 Personal history of nicotine dependence
CPT/HCPCS: 36415; 71046; 80053; 81003; 81015; 82550; 82553; 83605; 83735; 83880; 84443; 84484; 85025; 87086; 93005; 96365; 99284; A9270-GY; J3475

== ENCOUNTER → 2018-04-22 07:28 | Day surgery (SDC) | payer MEDICARE ==
[~2018-04-22 07:28] MED LIST: Adenosine* 3 MG/ML VIAL ONE; Aspirin 81 mg CHEW TAB* 81 MG TAB.CHEW ONE; Aspirin TAB* 325 MG PO ONE; Heparin 2 UNITS/ML IVPREMIX* 2,000 ML IV ONE; Heparin(*) 1000 UNIT/ML 10 ML VIAL CATH LAB IV ONE; Iohexol 350 (CONTRAST) 200 ML MDV IV ONE; Lidocaine 1% INJ* 10 MG/ML 30 ML SDV ONE; Midazolam* 1 MG/ML 10 ML VIAL (10 MG) ONE; NS 0.9% 1000 ML** 1,000 ML IV SCH; VERAPAMIL 2.5 MG/ML 2 ML VIAL ** 5 mg/2 ml ONE; fentaNYL* 50 MCG/ML 2 ML VIAL (100 MCG VIAL) ONE; nitroGLYCERIN DRIP* 25,000 MCG/250 ML BTL ONE
[2018-04-22 14:04] VITALS: BP 126/61
--- NOTE | 2018-04-22 14:19 | CATH ---
CC: Dr. Landeros; Dr. Hernandez; Alis Stuart NP * CATH REPORT: DATE OF PROCEDURE: 04/22/18 - [facility] CATH PRIMARY CARE PHYSICIAN: Dr. Landeros. PRIMARY MOLD YARD SUPERVISOR: Dr. Hernandez. PROCEDURES: Right radial artery access with ultrasound guidance, bilateral selective coronary cineangiography, left heart catheterization, left ventriculography. HISTORY: A 67-year-old woman with nonischemic cardiomyopathy diagnosed in 2009 with subsequent LV systolic function improvement. She has had issues with affording her medications. Cardiac cath x3 in the past has demonstrated at most 40% to 50% circumflex OM stenosis. In the setting of temporary discontinuation of medications, her AICD appropriately shocked an episode of VF and she has also had episodes of nonsustained VT. Because of the concern of progression of circumflex OM disease creating an ischemic substrate, she was referred for coronary angiography. PROCEDURE ACCESS: Right radial artery with ultrasound assistance. SHEATH: 6F slender. MEDICATIONS: 1. Subcu lidocaine. 2. IV Versed. 3. IV fentanyl. 4. Heparin 3000 units. 5. Verapamil 3 mg. 6. Nitroglycerin 300 mcg IA. 7. Nitroglycerin 100 mcg IC left coronary artery. DIAGNOSTIC CATHETERS: 5F TIG4, 5F pigtail. HEMODYNAMICS: LV 120/5-15, no aortic valve gradient on pullback. ANGIOGRAPHY: Left main. The left main is long, smooth, has no stenosis. LAD. It is moderate, extends to the apex, the LAD supplies a moderate diagonal , the LAD has no stenosis, is relatively smooth. Circumflex. The circumflex is large, not dominant, with a moderate distal marginal branch which has proximal 30% stenosis, not ischemia producing angiographically. The circumflex ends with a bifurcated smaller posterolateral. If anything compared to prior caths, the proximal stenosis in the OM is less than on prior angiograms. Perhaps because she received intracoronary nitroglycerin. RCA. The RCA is small, dominant, smooth, supplies a small PDA, has no stenosis. LV gram: There is mild global hypokinesis with frequent ectopy, estimated LVEF 40% to 45%, although some of that may be due to postextrasystolic potentiation. CONCLUSION: 1. No significant obstructive coronary disease, no ischemic substrate angiographically. 2. Reduced LV systolic function with known nonischemic cardiomyopathy. 3. Unremarkable left-sided hemodynamics. 4. Successful right radial artery access. [id number]/[facility] #: [id number] MARIE
== END | disposition home or self-care (01) ==
LOC: CHICATH 07:28
PROVIDERS: ATTEND Internal Medicine Cardiovascular Disease
DX: I25.10 Atherosclerotic heart disease of native coronary artery without angina pectoris (principal); I10 Essential (primary) hypertension; Z79.82 Long term (current) use of aspirin; Z79.899 Other long term (current) drug therapy; Z88.0 Allergy status to penicillin; Z87.891 Personal history of nicotine dependence
CPT/HCPCS: 93458; 99156; A9270-GY; J0153; J1644; J2250; J3010